=== PATIENT | male | born 1970 | race African-American/Black ===

== ENCOUNTER 2017-01-11 17:55 | Inpatient (IN) | payer OTHER, MEDICAID ==
[~2017-01-11] VITALS: Ht 170.2 cm; Wt 142.0 kg
[~2017-01-11 17:55] MED LIST: ARIP20TA PO; FLUO40CA7 PO
[2017-01-11] MEDS ORDERED: ARIP10TA8 PO (18:01)
[2017-01-11 18:45] LABS: BASOPHILS # (AUTO) 0.03 K/uL (0.00-0.20); BASOPHILS % (AUTO) 0.5 % (0.0-2.0); EOSINOPHILS # (AUTO) 0.13 K/uL (0.00-0.70); EOSINOPHILS % (AUTO) 1.81 % (1.0-6.0); HEMOGLOBIN 13.7 g/dL (13.5-17.5); LYMPHOCYTES # (AUTO) 1.1 K/uL (1.0-4.8); LYMPHOCYTES % (AUTO) 15.4 % (22.0-44.0); MEAN CORPUSCULAR HEMOGLOBIN 30.3 pg (26.0-34.0); MEAN CORPUSCULAR HGB CONC 33.3 G/dL (31.0-37.0); MEAN CORPUSCULAR VOLUME 91 fL (80-100); MONOCYTES # (AUTO) 0.6 K/uL (0.1-1.0); MONOCYTES % (AUTO) 8.3 % (2.0-9.0); NEUTROPHILS # (AUTO) 5.4 K/uL (1.8-7.7); NEUTROPHILS % (AUTO) 74.1 % (40.0-70.0); PLATELET COUNT (AUTO) 302 K/uL (150-450); RED BLOOD CELL COUNT(AUTO) 4.51 MIL/uL (4.50-5.90); RED CELL DISTRIBUTION WIDTH 13.9 % (11.5-14.5); WHITE BLOOD COUNT (AUTO) 7.3 K/uL (4.5-11.0)
[2017-01-11 18:57] LABS: ALANINE AMINOTRANSFERASE 35 U/L (12-78); ALBUMIN 3.3 g/dL (3.4-5.0); ANION GAP 10 mmol/L (8-16); ASPARTATE AMINOTRANSFERASE 26 U/L (15-37); BILIRUBIN,TOTAL 0.3 mg/dL (0.1-1.0); CALCIUM, TOTAL 8.6 mg/dL (8.8-10.5); CARBON DIOXIDE 25 mmol/L (22-29); CHLORIDE 106 mmol/L (98-107); CREATININE 0.85 mg/dL (0.60-1.30); GLOMERULAR FILTR. RATE CALC > 60 mL/min (>60); SODIUM SERUM 141 mmol/L (136-145); TOTAL PROTEIN, SERUM 6.4 g/dL (6.4-8.2); UREA NITROGEN, BLOOD 8 mg/dL (7-18)
[2017-01-11] MEDS ORDERED: HALOPERIDOL 5 MG TABLET PO PRN (19:30)
[2017-01-11] MEDS ORDERED: POTASSIUM CHLORIDE 20 MEQ ER TABLET PO ONE (19:30)
[2017-01-11] MEDS ORDERED: LORazepam 2 MG TABLET PO PRN (19:30)
[2017-01-11] MEDS ORDERED: ZOLPIDEM TARTRATE 10 MG TABLET PO PRN (19:30)
[2017-01-11 19:41] LABS: CHOL/HDL RATIO 1.9 (4.2-7.3)
[2017-01-11] MEDS ORDERED: QUEtiapine FUMARATE 100 MG TABLET PO PRN (19:45)
[2017-01-11 21:00] VITALS: BP 123/74
[2017-01-12 06:48] LABS: ANION GAP 7 mmol/L (8-16); CALCIUM, TOTAL 8.5 mg/dL (8.8-10.5); CARBON DIOXIDE 28 mmol/L (22-29); CHLORIDE 106 mmol/L (98-107); CREATININE 0.87 mg/dL (0.60-1.30); GLOMERULAR FILTR. RATE CALC > 60 mL/min (>60); SODIUM SERUM 141 mmol/L (136-145); UREA NITROGEN, BLOOD 9 mg/dL (7-18)
[2017-01-12 10:19] VITALS: BP 139/106
[2017-01-12] MEDS ORDERED: MAGNESIUM HYDROXIDE SUSPENSION 30 ML UDCUP PO PRN (12:30)
[2017-01-12] MEDS ORDERED: PROMETHAZINE HCL 25 MG TABLET PO PRN (12:30)
[2017-01-12] MEDS ORDERED: HydrOXYzine PAMOATE 50 MG CAPSULE PO PRN (12:30)
[2017-01-12] MEDS ORDERED: GuaiFENesin/D-METHORPHAN [SUGAR-FREE] 200-20MG/10 ML SYRUP UDCUP PO PRN (12:30)
[2017-01-12] MEDS ORDERED: LOPERAMIDE HCL 2 MG CAPSULE PO PRN (12:30)
[2017-01-12] MEDS ORDERED: MAG HYDROX/AL HYDROX/SIMETH ES 30 ML SUSPENSION UDCUP PO PRN (12:30)
[2017-01-12] MEDS ORDERED: TUBERCULIN, PURIFIED PROTEIN DERIVATIVE 5 TU/0.1 ML SYG ID ONE (12:30)
[2017-01-12] MEDS ORDERED: OLANZapine 5 MG RAPDIS TABLET PO PRN (17:30)
[2017-01-12] MEDS: THIAMINE HCL 100 MG TABLET PO SCH (17:38)
[2017-01-12 18:20] VITALS: BP 132/99
[2017-01-12] MEDS ORDERED: OLANZapine 5 MG RAPDIS TABLET PO SCH (21:00)
[2017-01-13] MEDS ORDERED: ARIPiprazole 15 MG TABLET PO SCH (09:00)
[2017-01-13] MEDS: FOLIC ACID 1 MG TABLET PO SCH (09:52)
[2017-01-13] MEDS: FLUoxetine HCL 20 MG CAPSULE PO SCH (09:52)
[2017-01-13] MEDS: NALTREXONE HCL 50 MG TABLET PO SCH (09:53)
[2017-01-13] MEDS: MULTIVITAMINS WITH MINERALS, THERAPEUTIC TABLET PO SCH (09:53)
[2017-01-13] MEDS: THIAMINE HCL 100 MG TABLET PO SCH ×2 (09:53→16:36)
[2017-01-13 11:31] VITALS: BP 132/96
[2017-01-13 16:30] VITALS: BP 108/65
[2017-01-13] MEDS: OLANZapine 10 MG RAPDIS TABLET PO SCH (20:37)
[2017-01-14] MEDS: FOLIC ACID 1 MG TABLET PO SCH (08:19)
[2017-01-14] MEDS: THIAMINE HCL 100 MG TABLET PO SCH ×2 (08:19→16:38)
[2017-01-14] MEDS: MULTIVITAMINS WITH MINERALS, THERAPEUTIC TABLET PO SCH (08:19)
[2017-01-14] MEDS: NALTREXONE HCL 50 MG TABLET PO SCH (08:19)
[2017-01-14] MEDS: FLUoxetine HCL 20 MG CAPSULE PO SCH (08:19)
[2017-01-14 09:37] VITALS: BP 136/92
[2017-01-14 17:39] VITALS: BP 108/65
[2017-01-14] MEDS: OLANZapine 10 MG RAPDIS TABLET PO SCH (20:16)
[2017-01-14] MEDS: DIVALPROEX SODIUM 500 MG ER TABLET PO SCH (20:16)
[2017-01-15 08:05] VITALS: BP 108/59
[2017-01-15] MEDS: FLUoxetine HCL 20 MG CAPSULE PO SCH (08:11)
[2017-01-15] MEDS: NALTREXONE HCL 50 MG TABLET PO SCH (08:11)
[2017-01-15] MEDS: MULTIVITAMINS WITH MINERALS, THERAPEUTIC TABLET PO SCH (08:11)
[2017-01-15] MEDS: THIAMINE HCL 100 MG TABLET PO SCH ×2 (08:11→16:48)
[2017-01-15] MEDS: FOLIC ACID 1 MG TABLET PO SCH (08:11)
[2017-01-15 17:09] VITALS: BP 118/73
[2017-01-15] MEDS: DIVALPROEX SODIUM 500 MG ER TABLET PO SCH (20:22)
[2017-01-15] MEDS: OLANZapine 10 MG RAPDIS TABLET PO SCH (20:23)
[2017-01-16 08:00] VITALS: BP 129/87
[2017-01-16] MEDS: MULTIVITAMINS WITH MINERALS, THERAPEUTIC TABLET PO SCH (08:32)
[2017-01-16] MEDS: FLUoxetine HCL 20 MG CAPSULE PO SCH (08:32)
[2017-01-16] MEDS: FOLIC ACID 1 MG TABLET PO SCH (08:32)
[2017-01-16] MEDS: NALTREXONE HCL 50 MG TABLET PO SCH (08:32)
[2017-01-16] MEDS: THIAMINE HCL 100 MG TABLET PO SCH ×2 (08:32→16:40)
[2017-01-16 18:00] VITALS: BP 110/68
[2017-01-16] MEDS: OLANZapine 10 MG RAPDIS TABLET PO SCH (21:42)
[2017-01-16] MEDS: DIVALPROEX SODIUM 500 MG ER TABLET PO SCH (21:43)
[2017-01-17] MEDS: MULTIVITAMINS WITH MINERALS, THERAPEUTIC TABLET PO SCH (08:32)
[2017-01-17] MEDS: THIAMINE HCL 100 MG TABLET PO SCH ×2 (08:32→16:50)
[2017-01-17] MEDS: FLUoxetine HCL 20 MG CAPSULE PO SCH (08:32)
[2017-01-17] MEDS: FOLIC ACID 1 MG TABLET PO SCH (08:32)
[2017-01-17] MEDS: NALTREXONE HCL 50 MG TABLET PO SCH (08:32)
[2017-01-17 08:42] VITALS: BP 170/81
[2017-01-17 17:00] VITALS: BP 105/78
[2017-01-17] MEDS: DIVALPROEX SODIUM 500 MG ER TABLET PO SCH (20:21)
[2017-01-17] MEDS: OLANZapine 10 MG RAPDIS TABLET PO SCH (20:23)
[2017-01-18 08:15] VITALS: BP 159/87
[2017-01-18] MEDS: FOLIC ACID 1 MG TABLET PO SCH (08:21)
[2017-01-18] MEDS: THIAMINE HCL 100 MG TABLET PO SCH ×2 (08:22→17:19)
[2017-01-18] MEDS: NALTREXONE HCL 50 MG TABLET PO SCH (08:22)
[2017-01-18] MEDS: FLUoxetine HCL 20 MG CAPSULE PO SCH (08:22)
[2017-01-18] MEDS: MULTIVITAMINS WITH MINERALS, THERAPEUTIC TABLET PO SCH (08:22)
[2017-01-18 19:15] VITALS: BP 136/86
[2017-01-18] MEDS: OLANZapine 10 MG RAPDIS TABLET PO SCH (20:39)
[2017-01-18] MEDS: DIVALPROEX SODIUM 500 MG ER TABLET PO SCH (20:39)
[2017-01-19] MEDS: FOLIC ACID 1 MG TABLET PO SCH (09:12)
[2017-01-19] MEDS: THIAMINE HCL 100 MG TABLET PO SCH ×2 (09:12→16:17)
[2017-01-19] MEDS: FLUoxetine HCL 20 MG CAPSULE PO SCH (09:12)
[2017-01-19] MEDS: NALTREXONE HCL 50 MG TABLET PO SCH (09:12)
[2017-01-19] MEDS: MULTIVITAMINS WITH MINERALS, THERAPEUTIC TABLET PO SCH (09:12)
[2017-01-19 11:18] VITALS: BP 115/73
[2017-01-19 19:09] VITALS: BP 109/69
[2017-01-19] MEDS: OLANZapine 10 MG RAPDIS TABLET PO SCH (20:45)
[2017-01-19] MEDS: DIVALPROEX SODIUM 500 MG ER TABLET PO SCH (20:45)
[2017-01-20] MEDS: MULTIVITAMINS WITH MINERALS, THERAPEUTIC TABLET PO SCH (08:15)
[2017-01-20] MEDS: NALTREXONE HCL 50 MG TABLET PO SCH (08:16)
[2017-01-20] MEDS: FLUoxetine HCL 20 MG CAPSULE PO SCH (08:16)
[2017-01-20] MEDS: FOLIC ACID 1 MG TABLET PO SCH (08:16)
[2017-01-20] MEDS: THIAMINE HCL 100 MG TABLET PO SCH ×2 (08:16→16:13)
[2017-01-20 08:22] VITALS: BP 109/80
[2017-01-20] MEDS: ACETAMINOPHEN 325 MG TABLET PO PRN (08:22)
[2017-01-20 16:55] VITALS: BP 115/71
[2017-01-20] MEDS: OLANZapine 10 MG RAPDIS TABLET PO SCH (20:09)
[2017-01-20] MEDS: DIVALPROEX SODIUM 500 MG ER TABLET PO SCH (20:09)
[2017-01-21] MEDS: MULTIVITAMINS WITH MINERALS, THERAPEUTIC TABLET PO SCH (08:15)
[2017-01-21] MEDS: THIAMINE HCL 100 MG TABLET PO SCH ×2 (08:16→15:53)
[2017-01-21] MEDS: NALTREXONE HCL 50 MG TABLET PO SCH (08:16)
[2017-01-21] MEDS: FOLIC ACID 1 MG TABLET PO SCH (08:16)
[2017-01-21] MEDS: FLUoxetine HCL 20 MG CAPSULE PO SCH (08:16)
[2017-01-21 08:22] VITALS: BP 129/74
[2017-01-21] MEDS ORDERED: FLUO-191 PO (13:18)
[2017-01-21] MEDS ORDERED: OLAN10TA6 PO (13:18)
[2017-01-21] MEDS ORDERED: NALT50TA6 PO (13:18)
[2017-01-21] MEDS ORDERED: DIVA500T52 PO (13:18)
[2017-01-21 19:44] VITALS: BP 103/68
[2017-01-21] MEDS: DIVALPROEX SODIUM 500 MG ER TABLET PO SCH (20:02)
[2017-01-21] MEDS: OLANZapine 10 MG RAPDIS TABLET PO SCH (20:04)
[2017-01-22] MEDS: MULTIVITAMINS WITH MINERALS, THERAPEUTIC TABLET PO SCH (08:05)
[2017-01-22] MEDS: FOLIC ACID 1 MG TABLET PO SCH (08:05)
[2017-01-22] MEDS: THIAMINE HCL 100 MG TABLET PO SCH (08:06)
[2017-01-22] MEDS: NALTREXONE HCL 50 MG TABLET PO SCH (08:06)
[2017-01-22] MEDS: FLUoxetine HCL 20 MG CAPSULE PO SCH (08:06)
[2017-01-22 08:08] VITALS: BP 132/82
[2017-01-22] MEDS: ACETAMINOPHEN 325 MG TABLET PO PRN (08:09)
== END 2017-01-22 15:00 | disposition home or self-care (01) | DRG 885 ==
LOC: EMS 17:57 → 3EX 19:53
PROVIDERS: ADMIT Psychiatry & Neurology Psychiatry; ATTEND Psychiatry & Neurology Psychiatry
DX: F25.0 Schizoaffective disorder, bipolar type (principal); E66.01 Morbid (severe) obesity due to excess calories; R45.851 Suicidal ideations; Z68.42 Body mass index [BMI] 45.0-49.9, adult; E87.6 Hypokalemia; F10.10 Alcohol abuse, uncomplicated; F17.210 Nicotine dependence, cigarettes, uncomplicated; F31.9 Bipolar disorder, unspecified; I10 Essential (primary) hypertension; J45.909 Unspecified asthma, uncomplicated; Z59.0 Homelessness; Z65.3 Problems related to other legal circumstances; Z79.899 Other long term (current) drug therapy; Z91.19 Patient's noncompliance with other medical treatment and regimen
CPT/HCPCS: 93005; 99285; G0480

== ENCOUNTER 2017-01-29 23:06 | Emergency (ER) | payer OTHER ==
[~2017-01-29] VITALS: Ht 175.3 cm; Wt 113.6 kg
[~2017-01-29 23:06] MED LIST changes: -ARIP20TA PO; +DIVA500T52 PO; +FLUO-191 PO; -FLUO40CA7 PO; +NALT50TA6 PO; +OLAN10TA6 PO
[2017-01-30 00:17] LABS: BASOPHILS % (AUTO) 0.4 % (0.0-2.0); EOSINOPHILS % (AUTO) 0.9 % (1.0-6.0); HEMATOCRIT 45.2 % (41-53); HEMOGLOBIN 15.2 g/dL (13.5-17.5); LYMPHOCYTES # (AUTO) 1.4 K/uL (1.0-4.8); LYMPHOCYTES % (AUTO) 13.3 % (22.0-44.0); MEAN CORPUSCULAR HEMOGLOBIN 30.1 pg (26.0-34.0); MEAN CORPUSCULAR HGB CONC 33.5 G/dL (31.0-37.0); MEAN CORPUSCULAR VOLUME 90 fL (80-100); MONOCYTES # (AUTO) 0.8 K/uL (0.1-1.0); MONOCYTES % (AUTO) 7.9 % (2.0-9.0); NEUTROPHILS # (AUTO) 8.3 K/uL (1.8-7.7); NEUTROPHILS % (AUTO) 77.5 % (40.0-70.0); PLATELET COUNT (AUTO) 287 K/uL (150-450); RED BLOOD CELL COUNT(AUTO) 5.04 MIL/uL (4.50-5.90); RED CELL DISTRIBUTION WIDTH 14.3 % (11.5-14.5); WHITE BLOOD COUNT (AUTO) 10.7 K/uL (4.5-11.0)
[2017-01-30 00:32] LABS: ANION GAP 9 mmol/L (8-16); CALCIUM, TOTAL 9.2 mg/dL (8.8-10.5); CARBON DIOXIDE 29 mmol/L (22-29); CHLORIDE 101 mmol/L (98-107); CREATININE 1.19 mg/dL (0.60-1.30); GLOMERULAR FILTR. RATE CALC > 60 mL/min (>60); POTASSIUM 4.4 mmol/L (3.5-5.1); SODIUM SERUM 139 mmol/L (136-145); UREA NITROGEN, BLOOD 16 mg/dL (7-18)
[2017-01-30 00:39] LABS: ALANINE AMINOTRANSFERASE 60 U/L (12-78); ALBUMIN 3.7 g/dL (3.4-5.0); ASPARTATE AMINOTRANSFERASE 29 U/L (15-37); BILIRUBIN,TOTAL 0.3 mg/dL (0.1-1.0); TOTAL PROTEIN, SERUM 7.7 g/dL (6.4-8.2); VALPROIC ACID 79 mcg/mL (50-100)
[2017-01-30] MEDS ORDERED: ONDANSETRON HCL 4 MG/2 ML VIAL IVP ONE (01:15)
[2017-01-30] MEDS ORDERED: MAG HYDROX/AL HYDROX/SIMETH ES 30 ML SUSPENSION UDCUP PO ONE (01:15)
[2017-01-30 02:01] VITALS: BP 110/74
== END 2017-01-30 02:15 | disposition home or self-care (01) ==
LOC: EMS 23:07
DX: K29.70 Gastritis, unspecified, without bleeding (principal); F31.9 Bipolar disorder, unspecified; I87.2 Venous insufficiency (chronic) (peripheral); F11.10 Opioid abuse, uncomplicated; I87.8 Other specified disorders of veins; I10 Essential (primary) hypertension; F17.210 Nicotine dependence, cigarettes, uncomplicated
CPT/HCPCS: 36415; 80053; 80164; 83690; 84484; 85025; 93005; 96374; 99285; 99406; J2405

== ENCOUNTER 2017-02-05 15:06 | Inpatient (IN) | payer OTHER, MEDICAID ==
[~2017-02-05] VITALS: Ht 175.3 cm; Wt 158.8 kg
[2017-02-05 15:49] LABS: BASOPHILS # (AUTO) 0.01 K/uL (0.00-0.20); BASOPHILS % (AUTO) 0.1 % (0.0-2.0); EOSINOPHILS # (AUTO) 0.27 K/uL (0.00-0.70); EOSINOPHILS % (AUTO) 3.85 % (1.0-6.0); HEMATOCRIT 36.5 % (41-53); HEMOGLOBIN 12.3 g/dL (13.5-17.5); LYMPHOCYTES # (AUTO) 1.4 K/uL (1.0-4.8); MEAN CORPUSCULAR HEMOGLOBIN 29.9 pg (26.0-34.0); MEAN CORPUSCULAR HGB CONC 33.6 G/dL (31.0-37.0); MEAN CORPUSCULAR VOLUME 89 fL (80-100); MONOCYTES # (AUTO) 1.2 K/uL (0.1-1.0); MONOCYTES % (AUTO) 16.5 % (2.0-9.0); NEUTROPHILS # (AUTO) 4.3 K/uL (1.8-7.7); NEUTROPHILS % (AUTO) 60.6 % (40.0-70.0); PLATELET COUNT (AUTO) 296 K/uL (150-450); RED BLOOD CELL COUNT(AUTO) 4.11 MIL/uL (4.50-5.90); RED CELL DISTRIBUTION WIDTH 14.1 % (11.5-14.5); WHITE BLOOD COUNT (AUTO) 7.1 K/uL (4.5-11.0)
[2017-02-05 15:53] LABS: SALICYLATE 1.2 mg/dL (2.8-20.0)
[2017-02-05 15:55] LABS: ANION GAP 7 mmol/L (8-16); CALCIUM, TOTAL 8.7 mg/dL (8.8-10.5); CARBON DIOXIDE 29 mmol/L (22-29); CHLORIDE 108 mmol/L (98-107); CREATININE 0.99 mg/dL (0.60-1.30); GLOMERULAR FILTR. RATE CALC > 60 mL/min (>60); POTASSIUM 3.5 mmol/L (3.5-5.1); SODIUM SERUM 144 mmol/L (136-145); UREA NITROGEN, BLOOD 10 mg/dL (7-18)
[2017-02-05 16:00] LABS: ALANINE AMINOTRANSFERASE 36 U/L (12-78); ALBUMIN 2.9 g/dL (3.4-5.0); BILIRUBIN,TOTAL 0.2 mg/dL (0.1-1.0); TOTAL PROTEIN, SERUM 6.3 g/dL (6.4-8.2); VALPROIC ACID 21 mcg/mL (50-100)
[2017-02-05 16:02] LABS: ACETAMINOPHEN < 2 mcg/mL (10-30)
[2017-02-05 16:08] LABS: B-TYPE NATRIURETIC PEPTIDE 139 pg/mL (0-100)
[2017-02-05 16:24] LABS: ASPARTATE AMINOTRANSFERASE 27 U/L (15-37)
[2017-02-05 19:22] LABS: ANION GAP 5 mmol/L (8-16); CALCIUM, TOTAL 8.4 mg/dL (8.8-10.5); CARBON DIOXIDE 29 mmol/L (22-29); CHLORIDE 109 mmol/L (98-107); CREATININE 0.96 mg/dL (0.60-1.30); GLOMERULAR FILTR. RATE CALC > 60 mL/min (>60); POTASSIUM 3.5 mmol/L (3.5-5.1); SODIUM SERUM 143 mmol/L (136-145); UREA NITROGEN, BLOOD 13 mg/dL (7-18)
[2017-02-05 19:28] LABS: ACETAMINOPHEN 3 mcg/mL (10-30); ALANINE AMINOTRANSFERASE 34 U/L (12-78); ALBUMIN 2.6 g/dL (3.4-5.0); ASPARTATE AMINOTRANSFERASE 24 U/L (15-37); BILIRUBIN,TOTAL 0.2 mg/dL (0.1-1.0); TOTAL PROTEIN, SERUM 5.6 g/dL (6.4-8.2); VALPROIC ACID 21 mcg/mL (50-100)
[2017-02-05 19:45] LABS: SALICYLATE 1.1 mg/dL (2.8-20.0)
[2017-02-05] MEDS ORDERED: ZOLPIDEM TARTRATE 10 MG TABLET PO PRN (21:30)
[2017-02-05] MEDS ORDERED: LORazepam 2 MG TABLET PO PRN (21:30)
[2017-02-05] MEDS ORDERED: HALOPERIDOL 5 MG TABLET PO PRN (21:30)
[2017-02-05 22:47] VITALS: BP 123/75
[2017-02-06 01:08] VITALS: BP 122/82
[2017-02-06] MEDS ORDERED: INFLUENZA VIRUS VACCINE QVS 2017-18 (3YR+)/PF 60 MCG/0.5 ML SYRINGE IM ONE (02:00)
[2017-02-06] MEDS ORDERED: PNEUMOCOCCAL VACCINE POLYVALENT 0.5 ML VIAL [PPSV23] IM ONE (02:00)
[2017-02-06 08:01] LABS: CHOL/HDL RATIO 1.8 (4.2-7.3)
[2017-02-06] MEDS: FLUoxetine HCL 20 MG CAPSULE PO SCH (10:15)
[2017-02-06 10:17] VITALS: BP 134/72
[2017-02-06] MEDS ORDERED: IBUPROFEN 400 MG TABLET PO PRN (15:45)
[2017-02-06] MEDS ORDERED: ACETAMINOPHEN 325 MG TABLET PO PRN (15:45)
[2017-02-06 16:47] VITALS: BP 126/81
[2017-02-06] MEDS: OLANZapine 10 MG RAPDIS TABLET PO SCH (20:52)
[2017-02-06] MEDS: DIVALPROEX SODIUM 500 MG ER TABLET PO SCH (20:52)
[2017-02-07 07:11] LABS: HEMOGLOBIN A1C 5.7 % (4.5-6.2)
[2017-02-07 07:40] LABS: THYROID STIMULATING HORMONE 0.67 uIU/mL (0.36-3.74)
[2017-02-07] MEDS: FLUoxetine HCL 20 MG CAPSULE PO SCH (08:21)
[2017-02-07 09:07] VITALS: BP 144/100
[2017-02-07 16:20] VITALS: BP 118/70
[2017-02-07] MEDS: DIVALPROEX SODIUM 500 MG ER TABLET PO SCH (21:05)
[2017-02-07] MEDS: PRAZOSIN HCL 1 MG CAPSULE PO SCH (21:05)
[2017-02-07] MEDS: OLANZapine 10 MG RAPDIS TABLET PO SCH (21:05)
[2017-02-08] MEDS: FLUoxetine HCL 20 MG CAPSULE PO SCH (08:39)
[2017-02-08 09:10] VITALS: BP 117/67
[2017-02-08] MEDS: DIVALPROEX SODIUM 500 MG ER TABLET PO SCH (20:08)
[2017-02-08] MEDS: PRAZOSIN HCL 1 MG CAPSULE PO SCH (20:08)
[2017-02-08] MEDS: OLANZapine 10 MG RAPDIS TABLET PO SCH (20:09)
[2017-02-08 20:13] VITALS: BP 128/72
[2017-02-09 04:37] VITALS: BP 120/76
[2017-02-09] MEDS: FLUoxetine HCL 20 MG CAPSULE PO SCH (08:07)
[2017-02-09 08:30] VITALS: BP 124/94
[2017-02-09 16:19] VITALS: BP 114/69
[2017-02-09] MEDS: OLANZapine 10 MG RAPDIS TABLET PO SCH (20:15)
[2017-02-09] MEDS: PRAZOSIN HCL 1 MG CAPSULE PO SCH (20:15)
[2017-02-09] MEDS: DIVALPROEX SODIUM 500 MG ER TABLET PO SCH (20:15)
[2017-02-09 20:20] VITALS: BP 128/78
[2017-02-10] MEDS: FLUoxetine HCL 20 MG CAPSULE PO SCH (09:17)
[2017-02-10 09:33] VITALS: BP 144/79
[2017-02-10 16:53] VITALS: BP 126/79
[2017-02-10] MEDS: PRAZOSIN HCL 1 MG CAPSULE PO SCH (20:12)
[2017-02-10] MEDS: OLANZapine 10 MG RAPDIS TABLET PO SCH (20:12)
[2017-02-10] MEDS: DIVALPROEX SODIUM 500 MG ER TABLET PO SCH (20:12)
[2017-02-10 20:22] VITALS: BP 129/69
[2017-02-11] MEDS: FLUoxetine HCL 20 MG CAPSULE PO SCH (08:31)
[2017-02-11 15:00] VITALS: BP 121/77
[2017-02-11 16:16] VITALS: BP 129/92
[2017-02-11] MEDS: PRAZOSIN HCL 1 MG CAPSULE PO SCH (20:42)
[2017-02-11] MEDS: OLANZapine 10 MG RAPDIS TABLET PO SCH (20:42)
[2017-02-11] MEDS: DIVALPROEX SODIUM 500 MG ER TABLET PO SCH (20:42)
[2017-02-12] MEDS: FLUoxetine HCL 20 MG CAPSULE PO SCH (08:15)
[2017-02-12 09:31] VITALS: BP 117/83
[2017-02-12 17:00] VITALS: BP 141/67
[2017-02-12] MEDS ORDERED: PNEUMOCOCCAL VACCINE POLYVALENT 0.5 ML VIAL [PPSV23] IM ONE (17:15)
[2017-02-12] MEDS: PRAZOSIN HCL 1 MG CAPSULE PO SCH (20:56)
[2017-02-12] MEDS: OLANZapine 10 MG RAPDIS TABLET PO SCH (20:57)
[2017-02-12] MEDS: DIVALPROEX SODIUM 500 MG ER TABLET PO SCH (20:57)
[2017-02-13] MEDS: FLUoxetine HCL 20 MG CAPSULE PO SCH (08:40)
[2017-02-13] MEDS: OLANZapine 5 MG RAPDIS TABLET PO SCH (08:41)
[2017-02-13 10:02] VITALS: BP 104/69
[2017-02-13 17:17] VITALS: BP 126/71
[2017-02-13] MEDS: OLANZapine 10 MG RAPDIS TABLET PO SCH (20:46)
[2017-02-13] MEDS: DIVALPROEX SODIUM 500 MG ER TABLET PO SCH (20:46)
[2017-02-13] MEDS: PRAZOSIN HCL 1 MG CAPSULE PO SCH (20:46)
[2017-02-14] MEDS: FLUoxetine HCL 20 MG CAPSULE PO SCH (08:22)
[2017-02-14] MEDS: OLANZapine 5 MG RAPDIS TABLET PO SCH (08:22)
[2017-02-14 10:00] VITALS: BP 122/72
[2017-02-14 18:30] VITALS: BP 110/64
[2017-02-14] MEDS: OLANZapine 10 MG RAPDIS TABLET PO SCH (20:28)
[2017-02-14] MEDS: PRAZOSIN HCL 1 MG CAPSULE PO SCH (20:28)
[2017-02-14] MEDS: DIVALPROEX SODIUM 500 MG ER TABLET PO SCH (20:30)
[2017-02-15] MEDS: FLUoxetine HCL 20 MG CAPSULE PO SCH (08:16)
[2017-02-15] MEDS: OLANZapine 5 MG RAPDIS TABLET PO SCH (08:17)
[2017-02-15 08:53] VITALS: BP 129/91
[2017-02-15 17:00] VITALS: BP 112/94
[2017-02-15] MEDS: OLANZapine 10 MG RAPDIS TABLET PO SCH (21:01)
[2017-02-15] MEDS: PRAZOSIN HCL 1 MG CAPSULE PO SCH (21:02)
[2017-02-15] MEDS: DIVALPROEX SODIUM 500 MG ER TABLET PO SCH (21:02)
[2017-02-16 09:17] VITALS: BP 106/71
[2017-02-16] MEDS: FLUoxetine HCL 20 MG CAPSULE PO SCH (10:14)
[2017-02-16] MEDS: OLANZapine 5 MG RAPDIS TABLET PO SCH (10:14)
[2017-02-16 16:21] VITALS: BP 108/62
[2017-02-16] MEDS: PRAZOSIN HCL 1 MG CAPSULE PO SCH (21:17)
[2017-02-16] MEDS: OLANZapine 10 MG RAPDIS TABLET PO SCH (21:17)
[2017-02-16] MEDS: DIVALPROEX SODIUM 500 MG ER TABLET PO SCH (21:17)
[2017-02-17 08:00] VITALS: BP 129/64
[2017-02-17] MEDS: FLUoxetine HCL 20 MG CAPSULE PO SCH (09:42)
[2017-02-17] MEDS: OLANZapine 5 MG RAPDIS TABLET PO SCH (09:42)
[2017-02-17 16:39] VITALS: BP 112/67
[2017-02-17] MEDS: DIVALPROEX SODIUM 500 MG ER TABLET PO SCH (20:10)
[2017-02-17] MEDS: OLANZapine 10 MG RAPDIS TABLET PO SCH (20:10)
[2017-02-17] MEDS: PRAZOSIN HCL 1 MG CAPSULE PO SCH (20:10)
[2017-02-18] MEDS: OLANZapine 5 MG RAPDIS TABLET PO SCH (09:01)
[2017-02-18] MEDS: FLUoxetine HCL 20 MG CAPSULE PO SCH (09:02)
[2017-02-18 09:36] VITALS: BP 126/91
[2017-02-18 17:00] VITALS: BP 103/65
[2017-02-18] MEDS: DIVALPROEX SODIUM 500 MG ER TABLET PO SCH (20:20)
[2017-02-18] MEDS: PRAZOSIN HCL 1 MG CAPSULE PO SCH (20:20)
[2017-02-18] MEDS: OLANZapine 10 MG RAPDIS TABLET PO SCH (20:20)
[2017-02-19] MEDS ORDERED: OLAN5TAB40 PO (08:39)
[2017-02-19] MEDS ORDERED: PRAZ1 PO (08:40)
[2017-02-19] MEDS: OLANZapine 5 MG RAPDIS TABLET PO SCH (08:42)
[2017-02-19] MEDS: FLUoxetine HCL 20 MG CAPSULE PO SCH (08:42)
== END 2017-02-19 10:15 | disposition home or self-care (01) | DRG 885 ==
LOC: EMS 15:09 → 3EC 21:31 → 3EX 22:38 → 3EI 02-15 16:27
PROVIDERS: ADMIT Psychiatry & Neurology Child & Adolescent Psychiatry; ATTEND Psychiatry & Neurology Child & Adolescent Psychiatry
PROC: 3E0234Z Introduction of Serum, Toxoid and Vaccine into Muscle, Percutaneous Approach (ICD-10-PCS; principal; 2017-02-12)
DX: F31.4 Bipolar disorder, current episode depressed, severe, without psychotic features (principal); E43 Unspecified severe protein-calorie malnutrition; R45.851 Suicidal ideations; Z68.43 Body mass index [BMI] 50.0-59.9, adult; F17.210 Nicotine dependence, cigarettes, uncomplicated; Z23 Encounter for immunization; J44.9 Chronic obstructive pulmonary disease, unspecified; I10 Essential (primary) hypertension; F12.90 Cannabis use, unspecified, uncomplicated; F11.90 Opioid use, unspecified, uncomplicated; F41.9 Anxiety disorder, unspecified; D64.9 Anemia, unspecified; F15.10 Other stimulant abuse, uncomplicated; Z83.3 Family history of diabetes mellitus; Z82.49 Family history of ischemic heart disease and other diseases of the circulatory system; Z84.89 Family history of other specified conditions; Z71.51 Drug abuse counseling and surveillance of drug abuser; Z71.6 Tobacco abuse counseling
CPT/HCPCS: 82728; 83036; 83540; 83550; 84443; 87081; 90471; 93005; 99285; 99406; G0480; G0481

== ENCOUNTER 2017-08-16 00:15 | Emergency (ER) | payer OTHER ==
[~2017-08-16] VITALS: Ht 180.3 cm; Wt 136.4 kg
[~2017-08-16 00:15] MED LIST changes: -NALT50TA6 PO; +OLAN5TAB40 PO; +PRAZ1 PO
[2017-08-16 03:07] LABS: BASOPHILS % (AUTO) 0.8 % (0.0-2.0); EOSINOPHILS % (AUTO) 3.9 % (1.0-6.0); HEMATOCRIT 37.7 % (41-53); LYMPHOCYTES # (AUTO) 1.7 K/uL (1.0-4.8); LYMPHOCYTES % (AUTO) 23.9 % (22.0-44.0); MEAN CORPUSCULAR HEMOGLOBIN 30.8 pg (26.0-34.0); MEAN CORPUSCULAR HGB CONC 34.6 G/dL (31.0-37.0); MEAN CORPUSCULAR VOLUME 89 fL (80-100); MONOCYTES # (AUTO) 0.7 K/uL (0.1-1.0); MONOCYTES % (AUTO) 10.6 % (2.0-9.0); NEUTROPHILS # (AUTO) 4.2 K/uL (1.8-7.7); NEUTROPHILS % (AUTO) 60.8 % (40.0-70.0); PLATELET COUNT (AUTO) 303 K/uL (150-450); RED BLOOD CELL COUNT(AUTO) 4.23 MIL/uL (4.50-5.90); RED CELL DISTRIBUTION WIDTH 14.6 % (11.5-14.5)
[2017-08-16 03:36] LABS: ANION GAP 5 mmol/L (8-16); CALCIUM, TOTAL 8.2 mg/dL (8.8-10.5); CARBON DIOXIDE 30 mmol/L (22-29); CHLORIDE 105 mmol/L (98-107); CREATININE 0.83 mg/dL (0.60-1.30); GLOMERULAR FILTR. RATE CALC > 60 mL/min (>60); GLUCOSE,RANDOM 93 mg/dL (70-110); POTASSIUM 3.2 mmol/L (3.5-5.1); SODIUM SERUM 140 mmol/L (136-145); UREA NITROGEN, BLOOD 4 mg/dL (7-18)
[2017-08-16 03:39] LABS: ALANINE AMINOTRANSFERASE 52 U/L (12-78); ALKALINE PHOSPHATASE 86 U/L (46-116); ASPARTATE AMINOTRANSFERASE 40 U/L (15-37); BILIRUBIN,TOTAL 0.4 mg/dL (0.1-1.0)
[2017-08-16] MEDS ORDERED: POTASSIUM CHLORIDE 10% 40 MEQ/30 ML LIQUID UDCUP PO ONE (04:15)
[2017-08-16 04:33] VITALS: BP 145/93
== END 2017-08-16 04:40 | disposition home or self-care (01) ==
LOC: EMS 00:16
DX: R60.0 Localized edema (principal); I87.2 Venous insufficiency (chronic) (peripheral); F31.9 Bipolar disorder, unspecified; I10 Essential (primary) hypertension; F11.90 Opioid use, unspecified, uncomplicated; F15.90 Other stimulant use, unspecified, uncomplicated; F17.210 Nicotine dependence, cigarettes, uncomplicated
CPT/HCPCS: 36415; 80053; 84484; 85025; 99284; 99406; G0480

== ENCOUNTER 2017-09-15 12:16 | Inpatient (IN) | payer OTHER, MEDICAID ==
[~2017-09-15] VITALS: Ht 182.9 cm; Wt 142.9 kg
[2017-09-15 12:34] LABS: GLUCOSE,POINT OF CARE 77 MG/DL (70-110)
[2017-09-15 13:20] LABS: BASOPHILS % (AUTO) 1.3 % (0.0-2.0); EOSINOPHILS % (AUTO) 3.3 % (1.0-6.0); HEMATOCRIT 41.3 % (41-53); HEMOGLOBIN 14.3 g/dL (13.5-17.5); LYMPHOCYTES # (AUTO) 1.7 K/uL (1.0-4.8); LYMPHOCYTES % (AUTO) 27.8 % (22.0-44.0); MEAN CORPUSCULAR HEMOGLOBIN 30.7 pg (26.0-34.0); MEAN CORPUSCULAR HGB CONC 34.5 G/dL (31.0-37.0); MEAN CORPUSCULAR VOLUME 89 fL (80-100); MONOCYTES # (AUTO) 0.6 K/uL (0.1-1.0); MONOCYTES % (AUTO) 8.9 % (2.0-9.0); NEUTROPHILS # (AUTO) 3.7 K/uL (1.8-7.7); NEUTROPHILS % (AUTO) 58.7 % (40.0-70.0); PLATELET COUNT (AUTO) 343 K/uL (150-450); RED BLOOD CELL COUNT(AUTO) 4.64 MIL/uL (4.50-5.90); RED CELL DISTRIBUTION WIDTH 14.2 % (11.5-14.5)
[2017-09-15 13:32] LABS: ANION GAP 6 mmol/L (8-16); CALCIUM, TOTAL 8.6 mg/dL (8.8-10.5); CARBON DIOXIDE 29 mmol/L (22-29); CHLORIDE 103 mmol/L (98-107); GLOMERULAR FILTR. RATE CALC > 60 mL/min (>60); GLUCOSE,RANDOM 81 mg/dL (70-110); POTASSIUM 3.9 mmol/L (3.5-5.1); SODIUM SERUM 138 mmol/L (136-145); UREA NITROGEN, BLOOD 5 mg/dL (7-18)
[2017-09-15 13:38] LABS: ALANINE AMINOTRANSFERASE 32 U/L (12-78); ALBUMIN 3.2 g/dL (3.4-5.0); ALKALINE PHOSPHATASE 92 U/L (46-116); ASPARTATE AMINOTRANSFERASE 24 U/L (15-37); BILIRUBIN,TOTAL 0.3 mg/dL (0.1-1.0); TOTAL PROTEIN, SERUM 6.6 g/dL (6.4-8.2)
[2017-09-15] MEDS ORDERED: ACETAMINOPHEN 325 MG TABLET PO ONE (17:00)
[2017-09-15 17:20] LABS: AMPHET/METH SCREEN,URINE POSITIVE (NEGATIVE); BARBITURATE SCREEN, URINE NEGATIVE (NEGATIVE); BENZODIAZEPINES SCREEN,URINE NEGATIVE (NEGATIVE); CANNABINOID SCREEN,URINE NEGATIVE (NEGATIVE); COCAINE SCREEN,URINE NEGATIVE (NEGATIVE); METHADONE SCREEN, URINE NEGATIVE (NEGATIVE); OPIATE SCREEN,URINE NEGATIVE (NEGATIVE)
[2017-09-15 17:28] LABS: PHENCYCLIDINE SCREEN,URINE NEGATIVE (NEGATIVE)
[2017-09-15] MEDS ORDERED: HALOPERIDOL 5 MG TABLET PO PRN (19:00)
[2017-09-15] MEDS ORDERED: LORazepam 2 MG TABLET PO PRN (19:00)
[2017-09-15 20:48] VITALS: BP 148/96
[2017-09-15] MEDS ORDERED: -PHARMACY VACCINE NOTE- MISC ONE (21:15)
[2017-09-15 21:41] LABS: FREE T4 (FREE THYROXINE) 1.11 ng/dL (0.76-1.46); THYROID STIMULATING HORMONE 1.41 uIU/mL (0.36-3.74)
[2017-09-15] MEDS: ZOLPIDEM TARTRATE 10 MG TABLET PO PRN (23:48)
[2017-09-16] VITALS: BP 117/77
[2017-09-16 06:57] LABS: HEMOGLOBIN A1C 5.3 % (4.5-6.2)
[2017-09-16 07:20] LABS: CHOL/HDL RATIO 2.1 (4.2-7.3); FREE T4 (FREE THYROXINE) 1.08 ng/dL (0.76-1.46); THYROID STIMULATING HORMONE 1.78 uIU/mL (0.36-3.74)
[2017-09-16 07:54] LABS: FOLATE SERUM 12.5 ng/mL (5.4-)
[2017-09-16 08:30] VITALS: BP 144/70
[2017-09-16] MEDS: NICOTINE 7 MG/24 HOUR PATCH TD SCH (08:36)
[2017-09-16] MEDS ORDERED: CloNIDine HCL 0.1 MG TABLET PO PRN (11:15)
[2017-09-16] MEDS: ZOLPIDEM TARTRATE 10 MG TABLET PO PRN (20:00)
[2017-09-16 21:56] VITALS: BP 138/75
[2017-09-17 08:00] VITALS: BP 123/81
[2017-09-17] MEDS: NICOTINE 7 MG/24 HOUR PATCH TD SCH (10:10)
[2017-09-17] MEDS: DIVALPROEX SODIUM 500 MG DR TABLET PO SCH ×2 (10:10→17:03)
[2017-09-17 16:51] VITALS: BP 140/84
[2017-09-17] MEDS: OLANZapine 5 MG TABLET PO SCH (21:01)
[2017-09-18 09:10] VITALS: BP 157/78
[2017-09-18] MEDS: DIVALPROEX SODIUM 500 MG DR TABLET PO SCH ×2 (10:47→16:08)
[2017-09-18] MEDS: NICOTINE 7 MG/24 HOUR PATCH TD SCH (10:57)
[2017-09-18 12:24] LABS: APPEARANCE,URINE CLEAR (CLEAR); BILIRUBIN,URINE NEGATIVE (NEGATIVE); GLUCOSE, URINE (UA) NEGATIVE (NEGATIVE); KETONES,URINE NEGATIVE (NEGATIVE); LEUKOCYTE ESTERASE ,URINE NEGATIVE (NEGATIVE); NITRATE,URINE NEGATIVE (NEGATIVE); OCCULT BLOOD,URINE NEGATIVE (NEGATIVE); PH,URINE 6.5 (5.0-8.0); PROTEIN,URINE NEGATIVE (NEGATIVE)
[2017-09-18 16:29] VITALS: BP 119/67
[2017-09-18] MEDS: OLANZapine 5 MG TABLET PO SCH (20:32)
[2017-09-19] MEDS: DIVALPROEX SODIUM 500 MG DR TABLET PO SCH ×2 (08:42→16:12)
[2017-09-19] MEDS: NICOTINE 7 MG/24 HOUR PATCH TD SCH (08:43)
[2017-09-19 09:57] VITALS: BP 124/77
[2017-09-19 16:30] VITALS: BP 107/72
[2017-09-19] MEDS: OLANZapine 5 MG TABLET PO SCH (20:35)
[2017-09-20] MEDS: DIVALPROEX SODIUM 500 MG DR TABLET PO SCH ×2 (08:30→16:45)
[2017-09-20] MEDS: NICOTINE 7 MG/24 HOUR PATCH TD SCH (08:39)
[2017-09-20 09:00] VITALS: BP 120/71
[2017-09-20 17:00] VITALS: BP 132/58
[2017-09-20] MEDS: OLANZapine 5 MG TABLET PO SCH (20:58)
[2017-09-21 08:30] VITALS: BP 136/69
[2017-09-21] MEDS: DIVALPROEX SODIUM 500 MG DR TABLET PO SCH ×2 (08:56→16:16)
[2017-09-21] MEDS: NICOTINE 7 MG/24 HOUR PATCH TD SCH (08:56)
[2017-09-21] MEDS: OLANZapine 5 MG TABLET PO SCH (20:11)
[2017-09-21 21:33] VITALS: BP 126/70
[2017-09-22 01:29] VITALS: BP 103/75
[2017-09-22 08:53] VITALS: BP 106/62
[2017-09-22] MEDS ORDERED: CHOLECALCIFEROL (VIT D3) 1,000 UNITS TABLET PO SCH (09:00)
[2017-09-22] MEDS: NICOTINE 7 MG/24 HOUR PATCH TD SCH (09:23)
[2017-09-22] MEDS: DIVALPROEX SODIUM 500 MG DR TABLET PO SCH ×2 (09:23→16:41)
[2017-09-22] MEDS ORDERED: DIVA500T69 PO (16:22)
[2017-09-22] MEDS ORDERED: OLAN5TAB2 PO (16:28)
[2017-09-22] MEDS ORDERED: DIVA500T52 PO (16:29)
[2017-09-22] MEDS ORDERED: VITAD1000 PO (16:33)
== END 2017-09-22 18:30 | disposition home or self-care (01) | DRG 885 ==
LOC: EMS 12:19 → 3EX 20:04 → 3EI 09-16 16:30 → 3EX 09-19 09:31
PROVIDERS: ADMIT Psychiatry & Neurology Psychiatry; ATTEND Psychiatry & Neurology Psychiatry
DX: F25.9 Schizoaffective disorder, unspecified (principal); R45.851 Suicidal ideations; E55.9 Vitamin D deficiency, unspecified; D64.9 Anemia, unspecified; F10.10 Alcohol abuse, uncomplicated; F19.10 Other psychoactive substance abuse, uncomplicated; I10 Essential (primary) hypertension; L98.499 Non-pressure chronic ulcer of skin of other sites with unspecified severity; F17.210 Nicotine dependence, cigarettes, uncomplicated; Z80.0 Family history of malignant neoplasm of digestive organs; Z80.9 Family history of malignant neoplasm, unspecified
CPT/HCPCS: 80074; 82306; 82607; 82746; 83036; 84439; 84443; 99285; G0480

== ENCOUNTER 2018-01-21 19:12 | Emergency (ER) | payer OTHER ==
[~2018-01-21] VITALS: Ht 177.8 cm; Wt 159.1 kg
[~2018-01-21 19:12] MED LIST changes: -DIVA500T52 PO; +DIVA500T69 PO; -FLUO-191 PO; -OLAN10TA6 PO; +OLAN5TAB2 PO; -OLAN5TAB40 PO; -PRAZ1 PO; +VITAD1000 PO
[2018-01-21 19:36] VITALS: BP 147/101
[2018-01-21 20:47] LABS: APPEARANCE,URINE CLEAR (CLEAR); GLUCOSE, URINE (UA) NEGATIVE (NEGATIVE); KETONES,URINE NEGATIVE (NEGATIVE); LEUKOCYTE ESTERASE ,URINE NEGATIVE (NEGATIVE); NITRATE,URINE NEGATIVE (NEGATIVE); OCCULT BLOOD,URINE NEGATIVE (NEGATIVE); PH,URINE 5.5 (5.0-8.0); PROTEIN,URINE NEGATIVE (NEGATIVE)
[2018-01-21 20:49] LABS: BILIRUBIN,URINE PRELIM. POSITIVE (NEGATIVE)
[2018-01-21 21:09] LABS: RBC,URINE 0-2 /HPF (0-2); WBC,URINE 0-2 /HPF (0-5)
[2018-01-21 21:10] LABS: BACTERIA,URINE Few /HPF (None Seen); MUCUS,URINE Moderate LPF (None Seen); SQUAMOUS EPITHELIAL CELL,UR Rare /LPF (None Seen)
[2018-01-21] MEDS ORDERED: OLANZapine 5 MG TABLET PO ONE (22:00)
[2018-01-21] MEDS ORDERED: IBUPROFEN 800 MG TABLET PO ONE (22:00)
[2018-01-21] MEDS ORDERED: DIVALPROEX SODIUM 250 MG DR TABLET PO ONE (22:00)
== END 2018-01-21 22:30 | disposition home or self-care (01) ==
LOC: EMS 19:13
DX: N45.1 Epididymitis (principal); I10 Essential (primary) hypertension; F31.9 Bipolar disorder, unspecified; F12.90 Cannabis use, unspecified, uncomplicated; F15.90 Other stimulant use, unspecified, uncomplicated; F17.210 Nicotine dependence, cigarettes, uncomplicated
CPT/HCPCS: 76870

== ENCOUNTER 2018-02-03 08:37 | Emergency (ER) | payer OTHER ==
[~2018-02-03] VITALS: Ht 177.8 cm; Wt 159.1 kg
[2018-02-03] MEDS ORDERED: SODIUM CHLORIDE 0.9% 1,000 ML IV ONE (09:02)
[2018-02-03] MEDS ORDERED: ACETAMINOPHEN 1000 MG/ISO-OSM 100 ML IV ONE (09:15)
[2018-02-03 09:40] LABS: BASOPHILS % (AUTO) 0.4 % (0.0-2.0); EOSINOPHILS % (AUTO) 0.1 % (1.0-6.0); HEMATOCRIT 41.1 % (41-53); HEMOGLOBIN 13.6 g/dL (13.5-17.5); LYMPHOCYTES # (AUTO) 0.6 K/uL (1.0-4.8); LYMPHOCYTES % (AUTO) 8.3 % (22.0-44.0); MEAN CORPUSCULAR HEMOGLOBIN 29.6 pg (26.0-34.0); MEAN CORPUSCULAR VOLUME 90 fL (80-100); MONOCYTES # (AUTO) 0.8 K/uL (0.1-1.0); MONOCYTES % (AUTO) 10.6 % (2.0-9.0); NEUTROPHILS # (AUTO) 6.3 K/uL (1.8-7.7); NEUTROPHILS % (AUTO) 80.6 % (40.0-70.0); PLATELET COUNT (AUTO) 236 K/uL (150-450); RED BLOOD CELL COUNT(AUTO) 4.59 MIL/uL (4.50-5.90); RED CELL DISTRIBUTION WIDTH 13.8 % (11.5-14.5)
[2018-02-03 09:48] LABS: PROTHROMBIN TIME 10.4 SEC (9.4-11.6)
[2018-02-03 09:55] LABS: LACTIC ACID 1.8 mmol/L (0.4-2.0)
[2018-02-03 09:58] LABS: APPEARANCE,URINE CLOUDY (CLEAR); BILIRUBIN,URINE NEGATIVE (NEGATIVE); GLUCOSE, URINE (UA) NEGATIVE (NEGATIVE); KETONES,URINE NEGATIVE (NEGATIVE); LEUKOCYTE ESTERASE ,URINE NEGATIVE (NEGATIVE); NITRATE,URINE NEGATIVE (NEGATIVE); OCCULT BLOOD,URINE NEGATIVE (NEGATIVE); PH,URINE 6.5 (5.0-8.0); PROTEIN,URINE NEGATIVE (NEGATIVE); UROBILINOGEN,URINE 0.2 mg/dL (<=1.0)
[2018-02-03 09:58] LABS: ANION GAP 7 mmol/L (8-16); CALCIUM, TOTAL 8.1 mg/dL (8.8-10.5); CARBON DIOXIDE 31 mmol/L (22-29); CHLORIDE 96 mmol/L (98-107); CREATININE 0.99 mg/dL (0.60-1.30); GLOMERULAR FILTR. RATE CALC > 60 mL/min (>60); GLUCOSE,RANDOM 88 mg/dL (70-110); POTASSIUM 3.7 mmol/L (3.5-5.1); SODIUM SERUM 134 mmol/L (136-145); UREA NITROGEN, BLOOD 10 mg/dL (7-18)
[2018-02-03 10:10] LABS: BACTERIA,URINE None Seen /HPF (None Seen); RBC,URINE None Seen /HPF (0-2); SQUAMOUS EPITHELIAL CELL,UR Few /LPF (None Seen); WBC,URINE 0-2 /HPF (0-5)
[2018-02-03 10:11] LABS: ALANINE AMINOTRANSFERASE 36 U/L (12-78); ALBUMIN 3.3 g/dL (3.4-5.0); ALKALINE PHOSPHATASE 95 U/L (46-116); ASPARTATE AMINOTRANSFERASE 33 U/L (15-37); BILIRUBIN,TOTAL 0.3 mg/dL (0.1-1.0); CREATINE KINASE, TOTAL ONLY 417 U/L (39-308); TOTAL PROTEIN, SERUM 6.8 g/dL (6.4-8.2)
[2018-02-03 10:20] LABS: INFLUENZA TYPE A POSITIVE FOR TYPE A (NEGATIVE); INFLUENZA TYPE B NEGATIVE FOR TYPE B (NEGATIVE)
[2018-02-03] MEDS ORDERED: IBUPROFEN 600 MG TABLET PO ONE (11:15)
[2018-02-03 11:50] VITALS: BP 141/81
[2018-02-06] MEDS ORDERED: OSELTAMIVIR PHOSPHATE 75 MG CAPSULE PO SCH (21:00)
== END 2018-02-03 12:14 | disposition home or self-care (01) ==
LOC: EMS 08:38
DX: J11.1 Influenza due to unidentified influenza virus with other respiratory manifestations (principal); F15.10 Other stimulant abuse, uncomplicated; F17.210 Nicotine dependence, cigarettes, uncomplicated; F12.90 Cannabis use, unspecified, uncomplicated; I10 Essential (primary) hypertension
CPT/HCPCS: 36415; 71045; 80053; 81001; 82550; 83605; 84484; 85025; 85610; 85730; 87804; 93005; 96374; 99285; 99406; J0131; J7030

== ENCOUNTER 2018-02-06 16:13 | Inpatient (IN) | payer OTHER, MEDICAID ==
[~2018-02-06] VITALS: Ht 180.3 cm; Wt 146.5 kg
[2018-02-06 16:50] LABS: BASOPHILS % (AUTO) 0.9 % (0.0-2.0); EOSINOPHILS % (AUTO) 2.8 % (1.0-6.0); HEMATOCRIT 42.9 % (41-53); HEMOGLOBIN 14.5 g/dL (13.5-17.5); LYMPHOCYTES # (AUTO) 1.2 K/uL (1.0-4.8); LYMPHOCYTES % (AUTO) 32.7 % (22.0-44.0); MEAN CORPUSCULAR HEMOGLOBIN 29.6 pg (26.0-34.0); MEAN CORPUSCULAR HGB CONC 33.7 G/dL (31.0-37.0); MEAN CORPUSCULAR VOLUME 88 fL (80-100); MONOCYTES # (AUTO) 0.5 K/uL (0.1-1.0); MONOCYTES % (AUTO) 12.3 % (2.0-9.0); NEUTROPHILS # (AUTO) 1.9 K/uL (1.8-7.7); NEUTROPHILS % (AUTO) 51.3 % (40.0-70.0); PLATELET COUNT (AUTO) 246 K/uL (150-450); RED BLOOD CELL COUNT(AUTO) 4.88 MIL/uL (4.50-5.90); RED CELL DISTRIBUTION WIDTH 13.8 % (11.5-14.5)
[2018-02-06 16:59] LABS: ANION GAP 4 mmol/L (8-16); CALCIUM, TOTAL 7.8 mg/dL (8.8-10.5); CARBON DIOXIDE 33 mmol/L (22-29); CHLORIDE 101 mmol/L (98-107); GLOMERULAR FILTR. RATE CALC > 60 mL/min (>60); GLUCOSE,RANDOM 71 mg/dL (70-110); POTASSIUM 3.3 mmol/L (3.5-5.1); SODIUM SERUM 138 mmol/L (136-145); UREA NITROGEN, BLOOD 9 mg/dL (7-18)
[2018-02-06 17:06] LABS: ALANINE AMINOTRANSFERASE 54 U/L (12-78); ALBUMIN 3.2 g/dL (3.4-5.0); ALKALINE PHOSPHATASE 82 U/L (46-116); ASPARTATE AMINOTRANSFERASE 68 U/L (15-37); BILIRUBIN,TOTAL 0.3 mg/dL (0.1-1.0); TOTAL PROTEIN, SERUM 6.7 g/dL (6.4-8.2)
[2018-02-06] MEDS ORDERED: HALOPERIDOL 5 MG TABLET PO ONE (17:15)
[2018-02-06] MEDS ORDERED: QUEtiapine FUMARATE 100 MG TABLET PO PRN (17:15)
[2018-02-06 17:57] LABS: AMPHET/METH SCREEN,URINE NEGATIVE (NEGATIVE); BARBITURATE SCREEN, URINE NEGATIVE (NEGATIVE); BENZODIAZEPINES SCREEN,URINE NEGATIVE (NEGATIVE); CANNABINOID SCREEN,URINE NEGATIVE (NEGATIVE); COCAINE SCREEN,URINE NEGATIVE (NEGATIVE); METHADONE SCREEN, URINE NEGATIVE (NEGATIVE); OPIATE SCREEN,URINE NEGATIVE (NEGATIVE); PHENCYCLIDINE SCREEN,URINE NEGATIVE (NEGATIVE)
[2018-02-06 18:04] LABS: APPEARANCE,URINE CLEAR (CLEAR); BILIRUBIN,URINE NEGATIVE (NEGATIVE); GLUCOSE, URINE (UA) NEGATIVE (NEGATIVE); KETONES,URINE NEGATIVE (NEGATIVE); LEUKOCYTE ESTERASE ,URINE NEGATIVE (NEGATIVE); NITRATE,URINE NEGATIVE (NEGATIVE); OCCULT BLOOD,URINE NEGATIVE (NEGATIVE); PH,URINE 6.5 (5.0-8.0); PROTEIN,URINE NEGATIVE (NEGATIVE); UROBILINOGEN,URINE 0.2 mg/dL (<=1.0)
[2018-02-06 18:45] VITALS: BP 147/96
[2018-02-06] MEDS ORDERED: POTASSIUM CHLORIDE 20 MEQ ER TABLET PO ONE (19:30)
[2018-02-06] MEDS ORDERED: CYANOCOBALAMIN 1,000 MCG/ML VIAL IM ONE (19:30)
[2018-02-06] MEDS ORDERED: CloNIDine HCL 0.1 MG TABLET PO PRN (19:30)
[2018-02-06] MEDS: OSELTAMIVIR PHOSPHATE 75 MG CAPSULE PO SCH (22:09)
[2018-02-07 03:02] VITALS: BP 138/86
[2018-02-07] MEDS: ZOLPIDEM TARTRATE 10 MG TABLET PO PRN (03:03)
[2018-02-07 06:54] LABS: BASOPHILS % (AUTO) 0.3 % (0.0-2.0); EOSINOPHILS % (AUTO) 1.2 % (1.0-6.0); HEMATOCRIT 42.4 % (41-53); HEMOGLOBIN 14.5 g/dL (13.5-17.5); LYMPHOCYTES # (AUTO) 1.6 K/uL (1.0-4.8); LYMPHOCYTES % (AUTO) 36.4 % (22.0-44.0); MEAN CORPUSCULAR HEMOGLOBIN 29.8 pg (26.0-34.0); MEAN CORPUSCULAR HGB CONC 34.2 G/dL (31.0-37.0); MEAN CORPUSCULAR VOLUME 87 fL (80-100); MONOCYTES # (AUTO) 0.7 K/uL (0.1-1.0); MONOCYTES % (AUTO) 14.7 % (2.0-9.0); NEUTROPHILS # (AUTO) 2.1 K/uL (1.8-7.7); NEUTROPHILS % (AUTO) 47.4 % (40.0-70.0); PLATELET COUNT (AUTO) 258 K/uL (150-450); RED BLOOD CELL COUNT(AUTO) 4.87 MIL/uL (4.50-5.90); RED CELL DISTRIBUTION WIDTH 13.8 % (11.5-14.5)
[2018-02-07 07:24] LABS: CHOL/HDL RATIO 2.1 (4.2-7.3); FREE T4 (FREE THYROXINE) 1.13 ng/dL (0.76-1.46); THYROID STIMULATING HORMONE 1.84 uIU/mL (0.36-3.74)
[2018-02-07] MEDS: FOLIC ACID 1 MG TABLET PO SCH (08:10)
[2018-02-07] MEDS: THIAMINE HCL 100 MG TABLET PO SCH (08:10)
[2018-02-07] MEDS: OSELTAMIVIR PHOSPHATE 75 MG CAPSULE PO SCH ×2 (08:10→16:27)
[2018-02-07] MEDS: AmLODIPine BESYLATE 5 MG TABLET PO SCH (08:11)
[2018-02-07 09:18] VITALS: BP 111/53
[2018-02-07] MEDS ORDERED: ACETAMINOPHEN 325 MG TABLET PO PRN (15:15)
[2018-02-07] MEDS ORDERED: TUBERCULIN, PURIFIED PROTEIN DERIVATIVE 5 TU/0.1 ML SYG ID ONE (15:15)
[2018-02-07] MEDS ORDERED: OLANZapine 5 MG RAPDIS TABLET PO PRN (15:15)
[2018-02-07] MEDS ORDERED: LOPERAMIDE HCL 2 MG CAPSULE PO PRN (15:15)
[2018-02-07] MEDS ORDERED: MAG HYDROX/AL HYDROX/SIMETH ES 30 ML SUSPENSION UDCUP PO PRN (15:15)
[2018-02-07] MEDS ORDERED: PROMETHAZINE HCL 25 MG TABLET PO PRN (15:15)
[2018-02-07] MEDS ORDERED: MAGNESIUM HYDROXIDE SUSPENSION 30 ML UDCUP PO PRN (15:15)
[2018-02-07 16:00] VITALS: BP 132/76
[2018-02-07] MEDS: DIVALPROEX SODIUM 500 MG ER TABLET PO SCH (20:51)
[2018-02-07] MEDS: OLANZapine 5 MG RAPDIS TABLET PO SCH (20:51)
[2018-02-08 08:05] VITALS: BP 144/89
[2018-02-08] MEDS: AmLODIPine BESYLATE 5 MG TABLET PO SCH (08:17)
[2018-02-08] MEDS: FOLIC ACID 1 MG TABLET PO SCH (08:17)
[2018-02-08] MEDS: THIAMINE HCL 100 MG TABLET PO SCH (08:19)
[2018-02-08] MEDS: OSELTAMIVIR PHOSPHATE 75 MG CAPSULE PO SCH ×2 (08:19→16:16)
[2018-02-08 17:26] VITALS: BP 114/73
[2018-02-08] MEDS: OLANZapine 5 MG RAPDIS TABLET PO SCH (20:23)
[2018-02-08] MEDS: DIVALPROEX SODIUM 500 MG ER TABLET PO SCH (20:23)
[2018-02-09 08:05] VITALS: BP 129/79
[2018-02-09] MEDS: THIAMINE HCL 100 MG TABLET PO SCH (08:47)
[2018-02-09] MEDS: FOLIC ACID 1 MG TABLET PO SCH (08:47)
[2018-02-09] MEDS: OSELTAMIVIR PHOSPHATE 75 MG CAPSULE PO SCH ×2 (08:47→16:09)
[2018-02-09] MEDS: AmLODIPine BESYLATE 5 MG TABLET PO SCH (08:48)
[2018-02-09 16:39] VITALS: BP 131/105
[2018-02-09] MEDS: DIVALPROEX SODIUM 500 MG ER TABLET PO SCH (20:09)
[2018-02-09] MEDS: OLANZapine 10 MG RAPDIS TABLET PO SCH (20:09)
[2018-02-10 02:15] VITALS: BP 139/79
[2018-02-10] MEDS: LORazepam 2 MG TABLET PO PRN (02:17)
[2018-02-10] MEDS: ZOLPIDEM TARTRATE 10 MG TABLET PO PRN (02:17)
[2018-02-10 08:05] VITALS: BP 127/79
[2018-02-10] MEDS: NALTREXONE HCL 50 MG TABLET PO SCH (08:18)
[2018-02-10] MEDS: THIAMINE HCL 100 MG TABLET PO SCH (08:18)
[2018-02-10] MEDS: AmLODIPine BESYLATE 5 MG TABLET PO SCH (08:18)
[2018-02-10] MEDS: FOLIC ACID 1 MG TABLET PO SCH (08:19)
[2018-02-10] MEDS: OSELTAMIVIR PHOSPHATE 75 MG CAPSULE PO SCH ×2 (08:19→17:19)
[2018-02-10] MEDS: OLANZapine 10 MG RAPDIS TABLET PO SCH (21:29)
[2018-02-10] MEDS: DIVALPROEX SODIUM 500 MG ER TABLET PO SCH (21:29)
[2018-02-10 22:55] VITALS: BP 107/72
[2018-02-11 00:43] VITALS: BP 135/87
[2018-02-11 08:05] VITALS: BP 120/78
[2018-02-11] MEDS: THIAMINE HCL 100 MG TABLET PO SCH (08:32)
[2018-02-11] MEDS: FOLIC ACID 1 MG TABLET PO SCH (08:32)
[2018-02-11] MEDS: NALTREXONE HCL 50 MG TABLET PO SCH (08:32)
[2018-02-11] MEDS: AmLODIPine BESYLATE 5 MG TABLET PO SCH (08:32)
[2018-02-11] MEDS: OSELTAMIVIR PHOSPHATE 75 MG CAPSULE PO SCH ×2 (08:33→16:12)
[2018-02-11 16:41] VITALS: BP 112/79
[2018-02-11] MEDS ORDERED: PALIPERIDONE 3 MG ER TABLET PO PRN (17:00)
[2018-02-11] MEDS ORDERED: PALIPERIDONE PALMITATE 234 MG/1.5 ML SYRINGE IM ONE (17:00)
[2018-02-11] MEDS: PALIPERIDONE 6 MG ER TABLET PO SCH (20:20)
[2018-02-11] MEDS: DIVALPROEX SODIUM 500 MG ER TABLET PO SCH (20:20)
[2018-02-11] MEDS: ZOLPIDEM TARTRATE 10 MG TABLET PO PRN (22:42)
[2018-02-12] MEDS: THIAMINE HCL 100 MG TABLET PO SCH (08:04)
[2018-02-12] MEDS: FOLIC ACID 1 MG TABLET PO SCH (08:04)
[2018-02-12] MEDS: AmLODIPine BESYLATE 5 MG TABLET PO SCH (08:04)
[2018-02-12] MEDS: NALTREXONE HCL 50 MG TABLET PO SCH (08:04)
[2018-02-12 09:55] VITALS: BP 113/93
[2018-02-12] MEDS: LORazepam 2 MG TABLET PO PRN (16:31)
[2018-02-12 18:33] VITALS: BP 105/69
[2018-02-12] MEDS: PALIPERIDONE 6 MG ER TABLET PO SCH (20:16)
[2018-02-12] MEDS: TraZODone HCL 100 MG TABLET PO SCH (20:16)
[2018-02-12] MEDS: DIVALPROEX SODIUM 500 MG ER TABLET PO SCH (21:13)
[2018-02-13 00:05] VITALS: BP 113/75
[2018-02-13] MEDS: ZOLPIDEM TARTRATE 10 MG TABLET PO PRN (00:09)
[2018-02-13 08:05] VITALS: BP 114/80
[2018-02-13] MEDS: AmLODIPine BESYLATE 5 MG TABLET PO SCH (08:43)
[2018-02-13] MEDS: FOLIC ACID 1 MG TABLET PO SCH (08:44)
[2018-02-13] MEDS: THIAMINE HCL 100 MG TABLET PO SCH (08:44)
[2018-02-13] MEDS: NALTREXONE HCL 50 MG TABLET PO SCH (08:44)
[2018-02-13 12:15] VITALS: BP 103/68
[2018-02-13 16:47] VITALS: BP 113/79
[2018-02-13] MEDS: DIVALPROEX SODIUM 500 MG ER TABLET PO SCH (20:20)
[2018-02-13] MEDS: TraZODone HCL 100 MG TABLET PO SCH (20:20)
[2018-02-14 06:29] LABS: BASOPHILS % (AUTO) 0.5 % (0.0-2.0); EOSINOPHILS % (AUTO) 2.3 % (1.0-6.0); HEMATOCRIT 42.8 % (41-53); HEMOGLOBIN 14.4 g/dL (13.5-17.5); LYMPHOCYTES # (AUTO) 1.8 K/uL (1.0-4.8); LYMPHOCYTES % (AUTO) 31.1 % (22.0-44.0); MEAN CORPUSCULAR HEMOGLOBIN 29.7 pg (26.0-34.0); MEAN CORPUSCULAR HGB CONC 33.7 G/dL (31.0-37.0); MEAN CORPUSCULAR VOLUME 88 fL (80-100); MONOCYTES # (AUTO) 0.8 K/uL (0.1-1.0); MONOCYTES % (AUTO) 13.7 % (2.0-9.0); NEUTROPHILS # (AUTO) 3.1 K/uL (1.8-7.7); NEUTROPHILS % (AUTO) 52.4 % (40.0-70.0); PLATELET COUNT (AUTO) 300 K/uL (150-450); RED BLOOD CELL COUNT(AUTO) 4.86 MIL/uL (4.50-5.90); RED CELL DISTRIBUTION WIDTH 13.3 % (11.5-14.5)
[2018-02-14 07:19] LABS: BILIRUBIN,DIRECT 0.2 mg/dL (0.00-0.20); BILIRUBIN,TOTAL 0.5 mg/dL (0.1-1.0); TOTAL PROTEIN, SERUM 6.3 g/dL (6.4-8.2)
[2018-02-14 08:05] VITALS: BP 123/76
[2018-02-14] MEDS: THIAMINE HCL 100 MG TABLET PO SCH (08:45)
[2018-02-14] MEDS: AmLODIPine BESYLATE 5 MG TABLET PO SCH (08:45)
[2018-02-14] MEDS: NALTREXONE HCL 50 MG TABLET PO SCH (08:45)
[2018-02-14] MEDS: FOLIC ACID 1 MG TABLET PO SCH (08:45)
[2018-02-14 16:15] VITALS: BP 113/77
[2018-02-14] MEDS: TraZODone HCL 100 MG TABLET PO SCH (20:32)
[2018-02-14] MEDS: DIVALPROEX SODIUM 500 MG ER TABLET PO SCH (20:32)
[2018-02-14] MEDS: ZOLPIDEM TARTRATE 10 MG TABLET PO SCH (20:33)
[2018-02-15] MEDS: NALTREXONE HCL 50 MG TABLET PO SCH (08:02)
[2018-02-15] MEDS: LORazepam 2 MG TABLET PO PRN (08:02)
[2018-02-15] MEDS: AmLODIPine BESYLATE 5 MG TABLET PO SCH (08:02)
[2018-02-15] MEDS: THIAMINE HCL 100 MG TABLET PO SCH (08:02)
[2018-02-15] MEDS: FOLIC ACID 1 MG TABLET PO SCH (08:02)
[2018-02-15 08:05] VITALS: BP 135/78
[2018-02-15] MEDS ORDERED: PALIPERIDONE PALMITATE 156 MG/ML SYRINGE IM ONE (09:00)
[2018-02-15 18:46] VITALS: BP 126/85
[2018-02-15] MEDS: DIVALPROEX SODIUM 500 MG ER TABLET PO SCH (20:14)
[2018-02-15] MEDS: TraZODone HCL 100 MG TABLET PO SCH (20:14)
[2018-02-15] MEDS: ZOLPIDEM TARTRATE 10 MG TABLET PO SCH (20:15)
[2018-02-16 08:10] VITALS: BP 109/63
[2018-02-16] MEDS: AmLODIPine BESYLATE 5 MG TABLET PO SCH (08:50)
[2018-02-16] MEDS: FOLIC ACID 1 MG TABLET PO SCH (08:50)
[2018-02-16] MEDS: NALTREXONE HCL 50 MG TABLET PO SCH (08:50)
[2018-02-16] MEDS: THIAMINE HCL 100 MG TABLET PO SCH (08:50)
[2018-02-16 17:00] VITALS: BP 122/81
[2018-02-16] MEDS: DIVALPROEX SODIUM 500 MG ER TABLET PO SCH (20:22)
[2018-02-16] MEDS: ZOLPIDEM TARTRATE 10 MG TABLET PO SCH (20:22)
[2018-02-16] MEDS: TraZODone HCL 100 MG TABLET PO SCH (20:22)
[2018-02-17] MEDS: AmLODIPine BESYLATE 5 MG TABLET PO SCH (08:00)
[2018-02-17] MEDS: THIAMINE HCL 100 MG TABLET PO SCH (08:01)
[2018-02-17] MEDS: NALTREXONE HCL 50 MG TABLET PO SCH (08:01)
[2018-02-17] MEDS: FOLIC ACID 1 MG TABLET PO SCH (08:01)
[2018-02-17 09:33] VITALS: BP 147/74
[2018-02-17 16:40] VITALS: BP 124/69
[2018-02-17] MEDS: DIVALPROEX SODIUM 500 MG ER TABLET PO SCH (20:22)
[2018-02-17] MEDS: TraZODone HCL 100 MG TABLET PO SCH (20:22)
[2018-02-17] MEDS: ZOLPIDEM TARTRATE 10 MG TABLET PO SCH (20:22)
[2018-02-18 03:40] VITALS: BP 133/75
[2018-02-18] MEDS: LORazepam 2 MG TABLET PO PRN (03:46)
[2018-02-18 08:33] VITALS: BP 114/76
[2018-02-18] MEDS: AmLODIPine BESYLATE 5 MG TABLET PO SCH (08:38)
[2018-02-18] MEDS: NALTREXONE HCL 50 MG TABLET PO SCH (08:38)
[2018-02-18] MEDS: FOLIC ACID 1 MG TABLET PO SCH (08:39)
[2018-02-18] MEDS: THIAMINE HCL 100 MG TABLET PO SCH (08:39)
[2018-02-18 16:57] VITALS: BP 93/58
[2018-02-18] MEDS: ZOLPIDEM TARTRATE 10 MG TABLET PO SCH (20:30)
[2018-02-18] MEDS: TraZODone HCL 100 MG TABLET PO SCH (20:30)
[2018-02-18] MEDS: DIVALPROEX SODIUM 500 MG ER TABLET PO SCH (20:30)
[2018-02-19 01:55] VITALS: BP 102/67
[2018-02-19] MEDS ORDERED: ZOLP10TA7 PO (08:02)
[2018-02-19] MEDS ORDERED: NALT50TA6 PO (08:03)
[2018-02-19] MEDS ORDERED: TRAZ-220 PO (08:03)
[2018-02-19] MEDS ORDERED: DIVA500T52 PO (08:07)
[2018-02-19] MEDS ORDERED: AMLO-511 PO (08:11)
[2018-02-19] MEDS ORDERED: FOLI1 PO (08:12)
[2018-02-19] MEDS ORDERED: THIA100T67 PO (08:12)
[2018-02-19 08:24] VITALS: BP 99/64
[2018-02-19] MEDS: NALTREXONE HCL 50 MG TABLET PO SCH (08:47)
[2018-02-19] MEDS: THIAMINE HCL 100 MG TABLET PO SCH (08:48)
[2018-02-19] MEDS: FOLIC ACID 1 MG TABLET PO SCH (08:48)
[2018-02-19] MEDS: AmLODIPine BESYLATE 5 MG TABLET PO SCH (08:50)
== END 2018-02-19 14:15 | disposition home or self-care (01) | DRG 885 ==
LOC: EMS 16:14 → 3EX 18:12
PROVIDERS: ADMIT Psychiatry & Neurology Psychiatry; ATTEND Psychiatry & Neurology Psychiatry
DX: F25.0 Schizoaffective disorder, bipolar type (principal); R45.851 Suicidal ideations; J44.9 Chronic obstructive pulmonary disease, unspecified; I10 Essential (primary) hypertension; D50.9 Iron deficiency anemia, unspecified; F15.90 Other stimulant use, unspecified, uncomplicated; E87.6 Hypokalemia; R79.89 Other specified abnormal findings of blood chemistry; Z87.891 Personal history of nicotine dependence; Z91.19 Patient's noncompliance with other medical treatment and regimen; Z80.0 Family history of malignant neoplasm of digestive organs; Z91.14 Patient's other noncompliance with medication regimen
CPT/HCPCS: 83036; 84439; 84443; 93005; 96372; G0378; G0480; J3420

== ENCOUNTER 2018-08-19 10:42 | Emergency (ER) | payer OTHER ==
[~2018-08-19] VITALS: Ht 177.8 cm; Wt 147.7 kg
[~2018-08-19 10:42] MED LIST changes: +AMLO-511 PO; +DIVA500T52 PO; -DIVA500T69 PO; +FOLI1 PO; +NALT50TA6 PO; -OLAN5TAB2 PO; +THIA100T67 PO; +TRAZ-220 PO; -VITAD1000 PO; +ZOLP10TA7 PO
[2018-08-19 11:53] LABS: APPEARANCE,URINE CLEAR (CLEAR); BILIRUBIN,URINE NEGATIVE (NEGATIVE); GLUCOSE, URINE (UA) NEGATIVE (NEGATIVE); KETONES,URINE NEGATIVE (NEGATIVE); LEUKOCYTE ESTERASE ,URINE NEGATIVE (NEGATIVE); NITRATE,URINE NEGATIVE (NEGATIVE); OCCULT BLOOD,URINE NEGATIVE (NEGATIVE); PH,URINE 6.5 (5.0-8.0); PROTEIN,URINE NEGATIVE (NEGATIVE)
[2018-08-19 11:58] LABS: BACTERIA,URINE None Seen /HPF (None Seen); RBC,URINE None Seen /HPF (0-2); WBC,URINE None Seen /HPF (0-5)
[2018-08-19 12:25] VITALS: BP 144/81
== END 2018-08-19 13:00 | disposition home or self-care (01) ==
LOC: EMS 10:44
DX: N32.0 Bladder-neck obstruction (principal); R60.9 Edema, unspecified; J40 Bronchitis, not specified as acute or chronic; I10 Essential (primary) hypertension; F31.9 Bipolar disorder, unspecified; F17.210 Nicotine dependence, cigarettes, uncomplicated; F12.90 Cannabis use, unspecified, uncomplicated; F15.90 Other stimulant use, unspecified, uncomplicated; Z79.899 Other long term (current) drug therapy
CPT/HCPCS: 87491; 87591; 99406

== ENCOUNTER 2018-11-20 10:24 | Emergency (ER) | payer OTHER ==
[~2018-11-20] VITALS: Ht 177.8 cm; Wt 143.2 kg
[~2018-11-20 10:24] MED LIST changes: -AMLO-511 PO; +AMLO5TAB9 PO
[2018-11-20 10:28] VITALS: BP 136/95
[2018-11-20] MEDS ORDERED: NEOMYCIN/POLYMYXIN B/HYDROCORT 10 ML OTIC SUSPENSION AS ONE (11:00)
== END 2018-11-20 11:14 | disposition home or self-care (01) ==
LOC: EMS 10:26
DX: I10 Essential (primary) hypertension (principal); H60.92 Unspecified otitis externa, left ear; F31.9 Bipolar disorder, unspecified; F17.210 Nicotine dependence, cigarettes, uncomplicated; F12.90 Cannabis use, unspecified, uncomplicated; F15.90 Other stimulant use, unspecified, uncomplicated; Z79.899 Other long term (current) drug therapy; Z98.890 Other specified postprocedural states

== ENCOUNTER 2021-07-10 19:34 | Emergency (ER) | payer OTHER ==
[~2021-07-10] VITALS: Ht 177.8 cm; Wt 122.7 kg
[~2021-07-10 19:34] MED LIST changes: +AMLO-257 PO; -AMLO5TAB9 PO; +DIVA-80 PO; -DIVA500T52 PO; +FOLI-130 PO; -FOLI1 PO; -THIA100T67 PO; +THIAMINE HCL100 MG PO; -TRAZ-220 PO; +TRAZ-257 PO; -ZOLP10TA7 PO; +ZOLP10TA8 PO
[2021-07-10] MEDS ORDERED: IBUPROFEN 600 MG TABLET PO ONE (20:30)
[2021-07-10 20:37] LABS: BASOPHILS % (AUTO) 0.6 % (0.0-2.0); EOSINOPHILS % (AUTO) 2.8 % (1.0-6.0); HEMATOCRIT 40.7 % (41-53); HEMOGLOBIN 13.5 g/dL (13.5-17.5); LYMPHOCYTES # (AUTO) 1.8 K/uL (1.0-4.8); LYMPHOCYTES % (AUTO) 22.9 % (22.0-44.0); MEAN CORPUSCULAR HEMOGLOBIN 29.4 pg (26.0-34.0); MEAN CORPUSCULAR HGB CONC 33.1 G/dL (31.0-37.0); MEAN CORPUSCULAR VOLUME 89 fL (80-100); MONOCYTES # (AUTO) 0.7 K/uL (0.1-1.0); MONOCYTES % (AUTO) 8.9 % (2.0-9.0); NEUTROPHILS # (AUTO) 5.1 K/uL (1.8-7.7); NEUTROPHILS % (AUTO) 64.8 % (40.0-70.0); PLATELET COUNT (AUTO) 350 K/uL (150-450); RED BLOOD CELL COUNT(AUTO) 4.59 MIL/uL (4.50-5.90); RED CELL DISTRIBUTION WIDTH 13.6 % (11.5-14.5)
[2021-07-10 20:48] LABS: ANION GAP 5 mmol/L (8-16); CALCIUM, TOTAL 8.9 mg/dL (8.8-10.5); CARBON DIOXIDE 32 mmol/L (22-29); CHLORIDE 103 mmol/L (98-107); CREATININE 1.11 mg/dL (0.60-1.30); GLOMERULAR FILTR. RATE CALC > 60 mL/min (>60); GLUCOSE,RANDOM 82 mg/dL (70-110); POTASSIUM 4.1 mmol/L (3.5-5.1); SODIUM SERUM 140 mmol/L (136-145); UREA NITROGEN, BLOOD 11 mg/dL (7-18)
[2021-07-10] MEDS ORDERED: IBUP-2070 PO (20:54)
[2021-07-10 21:30] VITALS: BP 143/94
== END 2021-07-10 22:16 | disposition home or self-care (01) ==
LOC: EMS 19:38
DX: S70.12XA Contusion of left thigh, initial encounter (principal); R55 Syncope and collapse; F31.9 Bipolar disorder, unspecified; I10 Essential (primary) hypertension; K80.80 Other cholelithiasis without obstruction; F17.210 Nicotine dependence, cigarettes, uncomplicated; F12.90 Cannabis use, unspecified, uncomplicated; F15.90 Other stimulant use, unspecified, uncomplicated; Z87.2 Personal history of diseases of the skin and subcutaneous tissue; Z87.39 Personal history of other diseases of the musculoskeletal system and connective tissue; X58.XXXA Exposure to other specified factors, initial encounter; Y93.89 Activity, other specified; Y92.89 Other specified places as the place of occurrence of the external cause; Y99.8 Other external cause status
CPT/HCPCS: 80048; 85025; 93005; 99284

== ENCOUNTER 2022-06-11 11:44 | Inpatient (IN) | payer OTHER, MEDICAID ==
[~2022-06-11] VITALS: Ht 177.8 cm; Wt 148.3 kg
[~2022-06-11 11:44] MED LIST changes: -DIVA-80 PO; +DIVA500T53 PO; +IBUP-1492 PO
[2022-06-11 12:21] LABS: BASOPHILS % (AUTO) 0.9 % (0.0-2.0); HEMATOCRIT 43.1 % (41-53); HEMOGLOBIN 14.1 g/dL (13.5-17.5); LYMPHOCYTES # (AUTO) 1.6 K/uL (1.0-4.8); LYMPHOCYTES % (AUTO) 20.9 % (22.0-44.0); MEAN CORPUSCULAR HEMOGLOBIN 28.9 pg (26.0-34.0); MEAN CORPUSCULAR HGB CONC 32.7 G/dL (31.0-37.0); MEAN CORPUSCULAR VOLUME 88 fL (80-100); MONOCYTES # (AUTO) 0.6 K/uL (0.1-1.0); MONOCYTES % (AUTO) 7.4 % (2.0-9.0); NEUTROPHILS # (AUTO) 5.3 K/uL (1.8-7.7); NEUTROPHILS % (AUTO) 68.8 % (40.0-70.0); PLATELET COUNT (AUTO) 325 K/uL (150-450); RED BLOOD CELL COUNT(AUTO) 4.88 MIL/uL (4.50-5.90); RED CELL DISTRIBUTION WIDTH 15.6 % (11.5-14.5)
[2022-06-11 12:24] LABS: COVID AG,FIA SOURCE NASOPHARYNGEAL
[2022-06-11 12:29] LABS: ANION GAP 5 mmol/L (8-16); CALCIUM, TOTAL 9.3 mg/dL (8.8-10.5); CARBON DIOXIDE 32 mmol/L (22-29); CHLORIDE 101 mmol/L (98-107); CREATININE 0.97 mg/dL (0.60-1.30); GLOMERULAR FILTR. RATE CALC > 60 mL/min (>60); GLUCOSE,RANDOM 97 mg/dL (70-110); POTASSIUM 3.7 mmol/L (3.5-5.1); SODIUM SERUM 138 mmol/L (136-145); UREA NITROGEN, BLOOD 6 mg/dL (7-18)
[2022-06-11 12:34] LABS: ALANINE AMINOTRANSFERASE 23 U/L (12-78); ALBUMIN 3.7 g/dL (3.4-5.0); ALKALINE PHOSPHATASE 104 U/L (46-116); ASPARTATE AMINOTRANSFERASE 20 U/L (15-37); BILIRUBIN,TOTAL 0.4 mg/dL (0.1-1.0); TOTAL PROTEIN, SERUM 8.1 g/dL (6.4-8.2)
[2022-06-11] MEDS ORDERED: QUEtiapine FUMARATE 25 MG TABLET PO ONE (13:15)
[2022-06-11] MEDS ORDERED: OLANZapine 5 MG RAPDIS TABLET PO PRN (14:00)
[2022-06-11] MEDS ORDERED: ZOLPIDEM TARTRATE 10 MG TABLET PO PRN (14:00)
[2022-06-11] MEDS ORDERED: LORazepam 2 MG TABLET PO PRN (14:00)
[2022-06-11 14:41] LABS: AMPHET/METH SCREEN,URINE POSITIVE (NEGATIVE); BARBITURATE SCREEN, URINE NEGATIVE (NEGATIVE); BENZODIAZEPINES SCREEN,URINE NEGATIVE (NEGATIVE); CANNABINOID SCREEN,URINE POSITIVE (NEGATIVE); COCAINE SCREEN,URINE NEGATIVE (NEGATIVE); METHADONE SCREEN, URINE NEGATIVE (NEGATIVE); OPIATE SCREEN,URINE NEGATIVE (NEGATIVE); PHENCYCLIDINE SCREEN,URINE NEGATIVE (NEGATIVE)
[2022-06-11 15:58] VITALS: BP 120/84
[2022-06-11] MEDS ORDERED: TUBERCULIN, PURIFIED PROTEIN DERIVATIVE 5 TU/0.1 ML SYRINGE ID ONE (17:45)
[2022-06-11] MEDS ORDERED: MAGNESIUM HYDROXIDE SUSPENSION 30 ML UDCUP PO PRN (17:45)
[2022-06-11] MEDS ORDERED: LOPERAMIDE HCL 2 MG CAPSULE PO PRN (17:45)
[2022-06-11] MEDS ORDERED: PROMETHAZINE HCL 25 MG TABLET PO PRN (17:45)
[2022-06-11] MEDS ORDERED: GuaiFENesin/D-METHORPHAN [SUGAR-FREE] 200-20MG/10 ML SYRUP UDCUP PO PRN (17:45)
[2022-06-11] MEDS ORDERED: HydrOXYzine PAMOATE 50 MG CAPSULE PO PRN (17:45)
[2022-06-11] MEDS ORDERED: MAG HYDROX/AL HYDROX/SIMETH ES 30 ML SUSPENSION UDCUP PO PRN (17:45)
[2022-06-11] MEDS ORDERED: ACETAMINOPHEN 325 MG TABLET PO PRN (17:45)
[2022-06-11] MEDS ORDERED: PALIPERIDONE PALMITATE 234 MG/1.5 ML SYRINGE IM ONE (18:00)
[2022-06-11 21:11] VITALS: BP 146/78
[2022-06-11] MEDS: MELATONIN 5 MG TABLET PO SCH (21:20)
[2022-06-11] MEDS: MIRTAZAPINE 15 MG TABLET PO SCH (21:20)
[2022-06-11] MEDS: OLANZapine 5 MG RAPDIS TABLET PO SCH (21:20)
[2022-06-12] MEDS: OMEGA-3/DHA/EPA/FISH OIL 1,000 MG CAPSULE PO SCH (08:27)
[2022-06-12] MEDS: THIAMINE 100 MG TABLET PO SCH ×2 (08:27→16:38)
[2022-06-12] MEDS: MULTIVITAMINS WITH MINERALS, THERAPEUTIC TABLET PO SCH (08:27)
[2022-06-12] MEDS: NALTREXONE HCL 50 MG TABLET PO SCH (08:28)
[2022-06-12] MEDS: AmLODIPine BESYLATE 5 MG TABLET PO SCH (08:28)
[2022-06-12] MEDS: FOLIC ACID 1 MG TABLET PO SCH (08:28)
[2022-06-12] MEDS: FLUoxetine HCL 20 MG CAPSULE PO SCH (08:28)
[2022-06-12 08:41] LABS: CHOL/HDL RATIO 2.3 (4.2-7.3); FREE T4 (FREE THYROXINE) 1.34 ng/dL (0.76-1.46); THYROID STIMULATING HORMONE 2.38 uIU/mL (0.36-3.74)
[2022-06-12 08:49] LABS: HEMOGLOBIN A1C 5.2 % (3.8-5.6)
[2022-06-12 08:51] VITALS: BP 157/99
[2022-06-12] MEDS ORDERED: THIA100T92 PO (11:25)
[2022-06-12 16:00] VITALS: BP 120/82
[2022-06-12] MEDS: MINERAL OIL/PETROLATUM 120 GM CREAM TP SCH (16:38)
[2022-06-12 16:51] VITALS: BP 102/82
[2022-06-12] MEDS: MIRTAZAPINE 15 MG TABLET PO SCH (20:05)
[2022-06-12] MEDS: MELATONIN 5 MG TABLET PO SCH (20:05)
[2022-06-12] MEDS: OLANZapine 5 MG RAPDIS TABLET PO SCH (20:06)
[2022-06-12] MEDS ORDERED: OLANZapine 10 MG RAPDIS TABLET PO SCH (21:00)
[2022-06-12 21:15] VITALS: BP 109/68
[2022-06-13 08:01] VITALS: BP 155/88
[2022-06-13] MEDS: MINERAL OIL/PETROLATUM 120 GM CREAM TP SCH ×2 (09:56→17:22)
[2022-06-13] MEDS: THIAMINE 100 MG TABLET PO SCH ×2 (09:56→17:23)
[2022-06-13] MEDS: FLUoxetine HCL 20 MG CAPSULE PO SCH (09:56)
[2022-06-13] MEDS: MULTIVITAMINS WITH MINERALS, THERAPEUTIC TABLET PO SCH (09:56)
[2022-06-13] MEDS: FOLIC ACID 1 MG TABLET PO SCH (09:56)
[2022-06-13] MEDS: OMEGA-3/DHA/EPA/FISH OIL 1,000 MG CAPSULE PO SCH (09:56)
[2022-06-13] MEDS: NALTREXONE HCL 50 MG TABLET PO SCH (09:56)
[2022-06-13] MEDS: AmLODIPine BESYLATE 5 MG TABLET PO SCH (09:56)
[2022-06-13 16:30] VITALS: BP 142/86
[2022-06-13 20:44] VITALS: BP 138/77
[2022-06-13] MEDS: MELATONIN 5 MG TABLET PO SCH (21:32)
[2022-06-13] MEDS: MIRTAZAPINE 15 MG TABLET PO SCH (21:32)
[2022-06-13] MEDS: OLANZapine 10 MG RAPDIS TABLET PO SCH (21:33)
[2022-06-14 08:42] VITALS: BP 147/69
[2022-06-14] MEDS: NALTREXONE HCL 50 MG TABLET PO SCH (10:06)
[2022-06-14] MEDS: MULTIVITAMINS WITH MINERALS, THERAPEUTIC TABLET PO SCH (10:06)
[2022-06-14] MEDS: OMEGA-3/DHA/EPA/FISH OIL 1,000 MG CAPSULE PO SCH (10:07)
[2022-06-14] MEDS: FLUoxetine HCL 20 MG CAPSULE PO SCH (10:08)
[2022-06-14] MEDS: AmLODIPine BESYLATE 5 MG TABLET PO SCH (10:08)
[2022-06-14] MEDS: FOLIC ACID 1 MG TABLET PO SCH (10:09)
[2022-06-14] MEDS: THIAMINE 100 MG TABLET PO SCH ×2 (10:09→17:08)
[2022-06-14] MEDS: MINERAL OIL/PETROLATUM 120 GM CREAM TP SCH ×2 (13:49→17:08)
[2022-06-14 16:30] VITALS: BP 126/73
[2022-06-14] MEDS: MELATONIN 5 MG TABLET PO SCH (21:00)
[2022-06-14] MEDS: MIRTAZAPINE 15 MG TABLET PO SCH (21:01)
[2022-06-14] MEDS: OLANZapine 10 MG RAPDIS TABLET PO SCH (21:01)
[2022-06-15] MEDS: FOLIC ACID 1 MG TABLET PO SCH (08:38)
[2022-06-15] MEDS: OMEGA-3/DHA/EPA/FISH OIL 1,000 MG CAPSULE PO SCH (08:38)
[2022-06-15] MEDS: FLUoxetine HCL 20 MG CAPSULE PO SCH (08:38)
[2022-06-15] MEDS: AmLODIPine BESYLATE 5 MG TABLET PO SCH (08:38)
[2022-06-15] MEDS: THIAMINE 100 MG TABLET PO SCH ×2 (08:38→17:53)
[2022-06-15] MEDS: MULTIVITAMINS WITH MINERALS, THERAPEUTIC TABLET PO SCH (08:38)
[2022-06-15] MEDS: NALTREXONE HCL 50 MG TABLET PO SCH (08:38)
[2022-06-15] MEDS ORDERED: PALIPERIDONE PALMITATE 156 MG/ML SYRINGE IM ONE (09:00)
[2022-06-15 09:11] VITALS: BP 126/82
[2022-06-15] MEDS: MINERAL OIL/PETROLATUM 120 GM CREAM TP SCH ×2 (10:53→17:53)
[2022-06-15 16:22] VITALS: BP 131/75
[2022-06-15 20:17] VITALS: BP 101/73
[2022-06-15] MEDS: MIRTAZAPINE 15 MG TABLET PO SCH (20:30)
[2022-06-15] MEDS: MELATONIN 5 MG TABLET PO SCH (20:31)
[2022-06-15] MEDS: OLANZapine 10 MG RAPDIS TABLET PO SCH (20:31)
[2022-06-16 09:31] VITALS: BP 147/71
[2022-06-16] MEDS: FOLIC ACID 1 MG TABLET PO SCH (09:33)
[2022-06-16] MEDS: FLUoxetine HCL 20 MG CAPSULE PO SCH (09:34)
[2022-06-16] MEDS: AmLODIPine BESYLATE 5 MG TABLET PO SCH (09:35)
[2022-06-16] MEDS: OMEGA-3/DHA/EPA/FISH OIL 1,000 MG CAPSULE PO SCH (09:36)
[2022-06-16] MEDS: NALTREXONE HCL 50 MG TABLET PO SCH (09:36)
[2022-06-16] MEDS: MULTIVITAMINS WITH MINERALS, THERAPEUTIC TABLET PO SCH (09:36)
[2022-06-16] MEDS: THIAMINE 100 MG TABLET PO SCH ×2 (09:37→17:45)
[2022-06-16] MEDS: MINERAL OIL/PETROLATUM 120 GM CREAM TP SCH ×2 (09:37→17:45)
[2022-06-16 16:48] VITALS: BP 114/61
[2022-06-16] MEDS: MIRTAZAPINE 15 MG TABLET PO SCH (20:29)
[2022-06-16] MEDS: OLANZapine 10 MG RAPDIS TABLET PO SCH (20:30)
[2022-06-16] MEDS: MELATONIN 5 MG TABLET PO SCH (20:30)
[2022-06-16 21:35] VITALS: BP 116/67
[2022-06-17] MEDS: OMEGA-3/DHA/EPA/FISH OIL 1,000 MG CAPSULE PO SCH (09:08)
[2022-06-17] MEDS: THIAMINE 100 MG TABLET PO SCH ×2 (09:08→17:06)
[2022-06-17] MEDS: FLUoxetine HCL 20 MG CAPSULE PO SCH (09:08)
[2022-06-17] MEDS: MULTIVITAMINS WITH MINERALS, THERAPEUTIC TABLET PO SCH (09:08)
[2022-06-17] MEDS: NALTREXONE HCL 50 MG TABLET PO SCH (09:08)
[2022-06-17] MEDS: AmLODIPine BESYLATE 5 MG TABLET PO SCH (09:09)
[2022-06-17] MEDS: FOLIC ACID 1 MG TABLET PO SCH (09:09)
[2022-06-17] MEDS: MINERAL OIL/PETROLATUM 120 GM CREAM TP SCH ×2 (09:10→17:06)
[2022-06-17 09:20] LABS: COVID AG,FIA SOURCE NASAL SWAB
[2022-06-17 10:25] VITALS: BP 145/62
[2022-06-17 17:18] VITALS: BP 145/70
[2022-06-17] MEDS ORDERED: GABAPENTIN 300 MG CAPSULE PO PRN (20:45)
[2022-06-17] MEDS ORDERED: ESZOPICLONE 3 MG TABLET PO PRN (20:45)
[2022-06-17] MEDS: OLANZapine 10 MG RAPDIS TABLET PO SCH (20:46)
[2022-06-17] MEDS: MELATONIN 5 MG TABLET PO SCH (20:46)
[2022-06-17] MEDS: MIRTAZAPINE 15 MG TABLET PO SCH (20:46)
[2022-06-18 08:00] VITALS: BP 96/62
[2022-06-18] MEDS: MINERAL OIL/PETROLATUM 120 GM CREAM TP SCH ×2 (08:59→16:31)
[2022-06-18] MEDS: THIAMINE 100 MG TABLET PO SCH ×2 (09:00→16:31)
[2022-06-18] MEDS: OMEGA-3/DHA/EPA/FISH OIL 1,000 MG CAPSULE PO SCH (09:00)
[2022-06-18] MEDS: FOLIC ACID 1 MG TABLET PO SCH (09:00)
[2022-06-18] MEDS: MULTIVITAMINS WITH MINERALS, THERAPEUTIC TABLET PO SCH (09:00)
[2022-06-18] MEDS: NALTREXONE HCL 50 MG TABLET PO SCH (09:00)
[2022-06-18] MEDS: AmLODIPine BESYLATE 5 MG TABLET PO SCH (09:00)
[2022-06-18] MEDS: FLUoxetine HCL 20 MG CAPSULE PO SCH (09:00)
[2022-06-18 16:03] VITALS: BP 111/70
[2022-06-18 20:06] VITALS: BP 124/78
[2022-06-18] MEDS: OLANZapine 10 MG RAPDIS TABLET PO SCH (20:51)
[2022-06-18] MEDS: MIRTAZAPINE 15 MG TABLET PO SCH (20:51)
[2022-06-18] MEDS: MELATONIN 5 MG TABLET PO SCH (20:51)
[2022-06-19 08:20] VITALS: BP 108/61
[2022-06-19] MEDS: OMEGA-3/DHA/EPA/FISH OIL 1,000 MG CAPSULE PO SCH (10:31)
[2022-06-19] MEDS: THIAMINE 100 MG TABLET PO SCH ×2 (10:31→16:12)
[2022-06-19] MEDS: FOLIC ACID 1 MG TABLET PO SCH (10:32)
[2022-06-19] MEDS: AmLODIPine BESYLATE 5 MG TABLET PO SCH (10:32)
[2022-06-19] MEDS: FLUoxetine HCL 20 MG CAPSULE PO SCH (10:32)
[2022-06-19] MEDS: MINERAL OIL/PETROLATUM 120 GM CREAM TP SCH ×2 (10:32→16:13)
[2022-06-19] MEDS: NALTREXONE HCL 50 MG TABLET PO SCH (10:32)
[2022-06-19] MEDS: MULTIVITAMINS WITH MINERALS, THERAPEUTIC TABLET PO SCH (10:32)
[2022-06-19 16:05] VITALS: BP 121/69
[2022-06-19] MEDS: MELATONIN 5 MG TABLET PO SCH (20:18)
[2022-06-19] MEDS: MIRTAZAPINE 15 MG TABLET PO SCH (20:18)
[2022-06-19] MEDS: OLANZapine 10 MG RAPDIS TABLET PO SCH (20:18)
[2022-06-19] MEDS ORDERED: NALT50TA PO (20:47)
[2022-06-19] MEDS ORDERED: MIRT-89 PO (20:47)
[2022-06-19] MEDS ORDERED: MELA5TAB40 PO (20:47)
[2022-06-19] MEDS ORDERED: FLUO20CA36 PO (20:48)
[2022-06-19] MEDS ORDERED: OLAN10TA26 PO (20:48)
[2022-06-19] MEDS ORDERED: OMEG-135 PO (20:48)
[2022-06-20] MEDS ORDERED: FLUO20CA36 PO (05:00)
[2022-06-20] MEDS ORDERED: MELA5TAB40 PO (05:03)
[2022-06-20] MEDS ORDERED: MIRT-89 PO (05:06)
[2022-06-20] MEDS ORDERED: OMEG-135 PO (05:06)
[2022-06-20] MEDS ORDERED: NALT50TA6 PO (05:06)
[2022-06-20] MEDS ORDERED: OLAN10TA26 PO (05:06)
[2022-06-20] MEDS: MINERAL OIL/PETROLATUM 120 GM CREAM TP SCH (08:00)
[2022-06-20 08:01] VITALS: BP 136/79
[2022-06-20] MEDS: MULTIVITAMINS WITH MINERALS, THERAPEUTIC TABLET PO SCH (08:01)
[2022-06-20] MEDS: FOLIC ACID 1 MG TABLET PO SCH (08:01)
[2022-06-20] MEDS: FLUoxetine HCL 20 MG CAPSULE PO SCH (08:01)
[2022-06-20] MEDS: NALTREXONE HCL 50 MG TABLET PO SCH (08:01)
[2022-06-20] MEDS: THIAMINE 100 MG TABLET PO SCH (08:01)
[2022-06-20] MEDS: AmLODIPine BESYLATE 5 MG TABLET PO SCH (08:01)
[2022-06-20] MEDS: OMEGA-3/DHA/EPA/FISH OIL 1,000 MG CAPSULE PO SCH (08:01)
== END 2022-06-20 13:29 | disposition home or self-care (01) | DRG 885 ==
LOC: EMS 11:47 → 3EX 14:51 → 3EI 15:55
PROVIDERS: ADMIT Psychiatry & Neurology Psychiatry; ATTEND Psychiatry & Neurology Psychiatry
DX: F25.1 Schizoaffective disorder, depressive type (principal); G93.41 Metabolic encephalopathy; R45.851 Suicidal ideations; Z68.42 Body mass index [BMI] 45.0-49.9, adult; Z59.00 Homelessness unspecified; F17.200 Nicotine dependence, unspecified, uncomplicated; F41.9 Anxiety disorder, unspecified; I10 Essential (primary) hypertension; J44.9 Chronic obstructive pulmonary disease, unspecified; K80.20 Calculus of gallbladder without cholecystitis without obstruction; Z20.822 Contact with and (suspected) exposure to COVID-19; R79.89 Other specified abnormal findings of blood chemistry; D64.9 Anemia, unspecified; E66.9 Obesity, unspecified; Z55.9 Problems related to education and literacy, unspecified; Z63.9 Problem related to primary support group, unspecified; Z65.3 Problems related to other legal circumstances
CPT/HCPCS: 80053; 80061; 80307; 83036; 84439; 84443; 85025; 86592; 93005; 99285; G0480; Q9967